=== PATIENT | male | born 1955 | race Caucasian/White ===

== ENCOUNTER 2022-12-19 05:27 | Observation (INO) ==
--- NOTE | 2022-11-28 09:04 | PAT Medication Instructions ---
Medication Instructions Date of Service November 28, 2022 Home Medications celecoxib 200 mg capsule (Celebrex) 200 mg PO DAILY PRN cholecalciferol (vitamin D3) 25 mcg (1,000 unit) tablet (Vitamin D3) 25 mcg PO QAM glipizide 5 mg tablet, extended release 24 hr 5 mg PO QAM hydrochlorothiazide 12.5 mg tablet 12.5 mg PO UD lisinopril 40 mg tablet 40 mg PO QAM metformin 750 mg tablet,extended release 24 hr 750 mg PO BID metoprolol succinate 25 mg tablet,extended release 24 hr 12.5 mg PO QAM acetaminophen 500 mg tablet 500 mg PO Q6H PRN apixaban 5 mg tablet (Eliquis) 5 mg PO BID hydrocodone 5 mg-acetaminophen 325 mg tablet 1 - 2 tab PO Q6H PRN methylprednisolone 4 mg tablets in a dose pack 4 mg PO QAM PRN Continue as directed methylprednisolone 4 mg tablets in a dose pack 4 mg PO QAM PRN ASK your surgeon for instructions celecoxib 200 mg capsule (Celebrex) 200 mg PO DAILY PRN ASK your prescriber and surgeon apixaban 5 mg tablet (Eliquis) 5 mg PO BID(in order for spinal or epidural anesthesia, Eliquis needs to be stopped 72 hours/3 days before surgery. Please check if okay with doctor that prescribes this to you) DO NOT take the morning of surgery cholecalciferol (vitamin D3) 25 mcg (1,000 unit) tablet (Vitamin D3) 25 mcg PO QAM glipizide 5 mg tablet, extended release 24 hr 5 mg PO QAM hydrochlorothiazide 12.5 mg tablet 12.5 mg PO UD lisinopril 40 mg tablet 40 mg PO QAM metformin 750 mg tablet,extended release 24 hr 750 mg PO BID Take morning of surgery With a small sip of water, OTHERWISE NOTHING TO EAT OR DRINK AFTER MIDNIGHT: metoprolol succinate 25 mg tablet,extended release 24 hr 12.5 mg PO QAM acetaminophen 500 mg tablet 500 mg PO Q6H PRN(if needed) hydrocodone 5 mg-acetaminophen 325 mg tablet 1 - 2 tab PO Q6H PRN(if needed) Take evening before surgery metformin 750 mg tablet,extended release 24 hr 750 mg PO BID acetaminophen 500 mg tablet 500 mg PO Q6H PRN(if needed) hydrocodone 5 mg-acetaminophen 325 mg tablet 1 - 2 tab PO Q6H PRN(if needed) Other Notes If you have any questions please call us at [phone] or [phone] or [phone] or [phone]
--- NOTE | 2022-12-01 08:04 | History & Physical Report ---
Date of Service December 01, 2022 date of surgery: 12/19/22 Procedure: Left Total Knee Arthroplasty Surgeon: Harman Song Assessment & Plan (1) Arthritis of knee, left: Plan: Risk and benefits of the procedure discussed in detail he would like to proceed with surgical invention. Plan will be left total knee arthroplasty. He has been given the okay to discontinue his Eliquis prior to his surgery and will resume this postoperatively. Would recommend overnight stay with discharge with home health physical therapy. Follow-up in the office 2 weeks postoperatively sooner if you have any problems The risks and benefits have been discussed including, but not limited to, risk of infection, nerve injury, stiffness, loss of motion, failure to improve, etc. Reasonable outcomes and options of treatment were discussed. An explanation of appropriate alternatives to the procedure that may be advantageous were discussed and their risks and benefits, as well as the risks and benefits of not proceeding with treatment. I offered to answer any additional inquiries concerning the treatment involved. All the patient's questions were answered. The patient is agreeable, understanding of the treatment plan and alternatives, and wishes to proceed with the treatment plan. History of Present Illness Chief Complaint: left knee pain Primary Care Provider: JOAO Harris Johan is a pleasant 67-year-old male who presented for preop evaluation prior to his left total knee replacement. He states that he is having pain in his knee for many years now which is gradually worsening, he has a history of left knee arthroscopy with partial meniscectomy but showed no improvement after surgery. He has tried oral anti-inflammatories and Tylenol without relief, he is currently unable to take anti-inflammatories secondary to the Eliquis. He has complaints of pain decreased range of motion and instability, currently rates his pain as 7 out of 10 Allergies Allergy/AdvReac Type Severity Reaction Status Date / Time [id number]-ERK-DlR Reductase AdvReac Intermediate leg pain Verified 11/28/22 07:30 Inhibitor Home Medications Medication Instructions Recorded Confirmed Type celecoxib 200 mg capsule (Celebrex) 200 mg PO DAILY PRN Pain 08/09/22 11/28/22 History cholecalciferol (vitamin D3) 25 25 mcg PO QAM 08/09/22 11/28/22 History mcg (1,000 unit) tablet (Vitamin D3) glipizide 5 mg tablet, extended 5 mg PO QAM 08/09/22 11/28/22 History release 24 hr hydrochlorothiazide 12.5 mg tablet 12.5 mg PO UD 08/09/22 11/28/22 History lisinopril 40 mg tablet 40 mg PO QAM 08/09/22 11/28/22 History metformin 750 mg tablet,extended 750 mg PO BID 08/09/22 11/28/22 History release 24 hr metoprolol succinate 25 mg 12.5 mg PO QAM 08/09/22 11/28/22 History tablet,extended release 24 hr acetaminophen 500 mg tablet 500 mg PO Q6H PRN Pain 11/28/22 11/28/22 History apixaban 5 mg tablet (Eliquis) 5 mg PO BID 11/28/22 11/28/22 History hydrocodone 5 mg-acetaminophen 325 1 - 2 tab PO Q6H PRN Pain 11/28/22 11/28/22 History mg tablet methylprednisolone 4 mg tablets in 4 mg PO QAM PRN gout flare up 11/28/22 11/28/22 History a dose pack Past Med/Surg History Medical History Arthritis Diabetes mellitus, type 2 DVT (deep venous thrombosis) Dx 04/05/22 (Right knee region, felt r/t Covid infection per pt), started on Eliquis, new US showed remaining blot clots, continued Eliquis History of COVID-19 01/2022 > symptoms resolved Hx of gout Hypertension Obesity Surgical History H/O foot surgery LEFT HEEL SURGERY (HARDWARE INTACT) H/O knee surgery LEFT X6 H/O metal removed from eye H/O thumb surgery LEFT RECONSTRUCTION History of anesthesia reaction Slow to wake, post-op nausea History of appendectomy History of bilateral carpal tunnel release History of colonoscopy History of tooth extraction Hx of arthroscopy of right knee Family History Other No family history of adverse response to anesthesia Social History Smoking Status: Former smoker Smoking End Date: many years ago; Second Hand Exposure: No; Do You Dip or Chew Tobacco: No; Tobacco Cessation Education Requested by Patient: No Hx Alcohol Use: No Hx Substance Use: No Preferred Language: Bulgarian Communication Ability: Effective Director Of Home Health Services Required: No Beliefs That Will Affect Care: None Current Living Situation: Spouse Other Information That Helps Us Care for You: No Feels Safe at Home: Yes Safety Concerns: Feels Safe At This Time Assistive Devices: Denture - Upper and Denture - Lower Assistive Devices Comment: does not wear dentures Review of Systems Review of Systems: All systems reviewed & are unremarkable except as noted in HPI & below Constitutional: no fever, no chills and no sweats Respiratory: no cough and no dyspnea Cardiovascular: no chest pain, no dyspnea and no orthopnea Gastrointestinal: no abdominal pain, no nausea and no vomiting Musculoskeletal: as per Subjective / HPI Physical Exam Physical Exam: HT 5ft 9in WT: 113.3kg Constitutional: WD/WN, vitals as above no acute distress Respiratory: normal respiratory effort, lungs clear to auscultation no respiratory distress, no labored breathing and does not use accessory muscles Cardiovascular: RRR, no murmur, no edema Gastrointestinal (Abdomen): normal bowel sounds, soft, nontender, no hepatosplenomegaly Musculoskeletal: Knee: + effusion (+1 effusion), + surgical incision (well healed portals), + limited ROM of knee (ROM 0/3/110), + knee ROM with crepitation, + joint line tenderness (medial joint line) and + Dhiraj's sign positive; no deformity, no skin erythema, no ecchymosis, no valgus laxity, no varus laxity, anterior drawer test negative, Russel's sign negative and pivot shift test negative Results & Data Results & Data ([facility]) Diagnostic Findings Left knee x-rays and MRI reviewed which show grade 3 4 degenerative changes to the medial compartment of his left knee with joint space narrowing osteophyte formation no acute findings noted
--- NOTE | 2022-12-01 13:17 | Anesthesiology Consultation ---
Date of Service December 01, 2022 Assessment & Plan (1) Encounter for pre-operative examination: Plan - elevated A1c 7.9% and WBC at 12 with left shift dating back to 08/22 per [place] records. Case discussed in detail with Dr. Vang who advised patient is acceptable to proceed with surgery without additional evaluation or testing from his standpoint. Surgeon's office made aware. - Pt made aware of positive COVID test, surgery will be more than 15 days from positive test date and pt is asymptomatic at this time. He can proceed with surgery, is to call office if develops symptoms. He verbalized full understanding and agreement, denied questions or concerns. - check BSG am DOS. - Outpatient joint assessment: Patient is currently scheduled for inpatient pathway. If re-evaluated pending system levels during current pandemic/surgeon requests outpatient pathway, patient is not acceptable candidate for outpatient joint program from anesthesia standpoint. Chart Review Chart Review: Acceptable Risk for Surgery and Patient seen in Pre Admission Testing Teaching & Discussion Pre-Anesthesia Teaching/Discussion Notes: Instructed NPO after midnight before surgery, except medications with 15 cc of water. Medication instructions provided according to the PAT guidelines. History Surgery Operation Date: 12/19/22 08:25 Proposed Procedures p Left Total Knee Arthroplasty - Harman Song DO Height/Weight Height: 5 ft 9 in Weight: 119 kg Allergies Allergy/AdvReac Type Severity Reaction Status Date / Time [id number]-TWB-[id number] Reductase AdvReac Intermediate leg pain Verified 11/28/22 07:30 Inhibitor Medications Home Medications Medication Instructions Recorded Confirmed Last Taken celecoxib 200 mg capsule (Celebrex) 200 mg PO DAILY PRN Pain 08/09/22 11/28/22 Unknown cholecalciferol (vitamin D3) 25 25 mcg PO QAM 08/09/22 11/28/22 Unknown mcg (1,000 unit) tablet (Vitamin D3) glipizide 5 mg tablet, extended 5 mg PO QAM 08/09/22 11/28/22 Unknown release 24 hr hydrochlorothiazide 12.5 mg tablet 12.5 mg PO UD 08/09/22 11/28/22 Unknown lisinopril 40 mg tablet 40 mg PO QAM 08/09/22 11/28/22 Unknown metformin 750 mg tablet,extended 750 mg PO BID 08/09/22 11/28/22 Unknown release 24 hr metoprolol succinate 25 mg 12.5 mg PO QAM 08/09/22 11/28/22 Unknown tablet,extended release 24 hr acetaminophen 500 mg tablet 500 mg PO Q6H PRN Pain 11/28/22 11/28/22 Unknown apixaban 5 mg tablet (Eliquis) 5 mg PO BID 11/28/22 11/28/22 Unknown hydrocodone 5 mg-acetaminophen 325 1 - 2 tab PO Q6H PRN Pain 11/28/22 11/28/22 Unknown mg tablet methylprednisolone 4 mg tablets in 4 mg PO QAM PRN gout flare up 11/28/22 11/28/22 Unknown a dose pack Past Medical History Medical History (Updated 12/01/22 @ 13:33 by Aviva Mclaughlin PA-C) Diabetes mellitus, type 2 NIDDM DVT (deep venous thrombosis) Dx 04/05/22 (Right knee region, felt r/t Covid infection per pt), started on Eliquis, new US showed remaining blot clots, continued Eliquis GERD (gastroesophageal reflux disease) rare, takes OTC medication prn History of COVID-19 01/2022 > symptoms resolved Hx of gout Hypertension controlled, stable per pt Obesity Patient denies h/o stroke, seizures, heart attack, heart failure, or blood transfusions. Exercise / Class Metabolic Activity II 4-5 Yardwork/Stairs/Walk up hill (denies chest discomfort or shortness of breath with 1 FOS) Past Family History Family History Other No family history of adverse response to anesthesia Past Surgical History Surgical History H/O foot surgery LEFT HEEL SURGERY (HARDWARE INTACT) H/O knee surgery LEFT X6 H/O metal removed from eye H/O thumb surgery LEFT RECONSTRUCTION History of anesthesia reaction Slow to wake, post-op nausea History of appendectomy History of bilateral carpal tunnel release History of colonoscopy History of tooth extraction Hx of arthroscopy of right knee Past Anesthesia History No Family Hx of Anesthesia Complications and Other (slow to wake up; denies re- intubation) History of PONV No Hx of Motion Sickness and History of PONV (denies needing scop patch) Social History Smoking Status: Former smoker tobacco type: cigarettes Do You Dip or Chew Tobacco: No Smoking End Date: many years ago Hx Alcohol Use: Yes alcohol intake frequency: holidays/special occasions only Hx Substance Use: No substance use type: does not use Review of Systems Pt reports onset of rhinorrhea and nonproductive cough, symptom onset "more than a week ago". Pt states symptoms have fully resolved at this time. Snoring, denies witnessed apneas. Patient denies chest pain, shortness of breath, dyspnea on exertion, fever, chills, wheezing, or palpitations. Physical Exam Vital Signs Vitals BP 144/84 P 102 (Pt reports anxiety in clinical settings) TEMP 99 SP02 96% on RA RESP 18 Physical Full cervical extension range of motion without pain TMD 3.5 finger breadths Mallampati Score 2 Dentition: edentulous Lungs: normal respiratory effort. Clear throughout to auscultation, no adventitious breath sounds Cardiac: regular rate and rhythm, no murmurs noted Carotid arteries: negative bruit bilat Testing Electrocardiogram Date: 08/14/22 NSR, rate 82 bpm Chest X-Ray Date: 08/14/22 The lungs are clear. Cardiac silhouette is normal in size. No pleural effusions. No pneumothorax. IMPRESSION: No acute process. COVID-19 Risk Screen Screening Information COVID-19 Screen Date: 12/01/22 Exposure 21 Days Family/Household +COVID Last 21 Days: No Exposure 10 Days Any COVID Exposure Last 10 Days: No Symptoms Last 10 Days Experienced COVID Sx Last 10 Days: Yes Covid Sx 10 Day Pathway: If patient has symptoms, they should follow up with their PCP/surgeon to be COVID -19 tested and for further instructions related to their illness. Order COVID Testing COVID-19 Test Result pathway: * If the COVID Test is Negative, other risk factors are acceptable, and the patient is feeling well; proceed with procedure. * If the COVID-19 test is Positive: * Elective procedures will be cancelled/rescheduled per Policy 1096. * Urgent or Emergent procedures will need documentation that the procedure is medically necessary and precautions implemented per Policy 1096. Policies and Procedures Refer to Policy and Procedure 1096 for Initiation & Discontinuation of Transmission-Based Precautions for Confirmed and Suspected SARS-CoV-2 Infection which can be found on the Intranet in the Clinical Resources Manual by clicking on the link below: [email or web address] 20and%[email or web address]%20of%[email or web address] .pdf#search=discontinuation%20of%20Transmission%2DBased + COVID 0-90 Days COVID + in Last 0-90 Days: Yes + COVID Test 0-10 Day: Yes +Covid 0-90 Day Pathway: Validate type of COVID-19 test (must secure test results for patient chart) * The patients test result MUST be a NAAT (i.e., molecular test not an antigen test). * NO other COVID-19 testing needed pre-op or day of surgery inside the 90 day window if prior positive test is acceptable per hospital Policy. Note: Home tests or antigen tests are NOT accepted per hospital policy. Provider to place an order for a ALEXEY (i.e., molecular test not an antigen test). Then proceed to the appropriate pathway based on the testing results. Elective Case +COVID-19 in the last 0-10 Days * Cancel/reschedule using Policy 1096. * Reschedule procedure 11 days if asymptomatic. * Reschedule procedure 15 days if mild symptoms. * Reschedule procedure 21 days if moderate to severe symptoms. Elective Case +COVID-19 in the last 11-90 Days * Proceed with procedure according to Policy 1096 * Reschedule procedure 11 days if asymptomatic. * Reschedule procedure 15 days if mild symptoms. * Reschedule procedure 21 days if moderate to severe symptoms. Urgent or Emergent Case * Provider will provide medical necessity statement in the H&P and patient will be scheduled on the (+) COVID/PUI pathway per hospital policy. Policies and Procedures Refer to Policy and Procedure 1096 for Initiation & Discontinuation of Transmission-Based Precautions for Confirmed and Suspected SARS-CoV-2 Infection which can be found on the Intranet in the Clinical Resources Manual by clicking on the link below: [email or web address] 20and%20Discontinuation%20of%20Transmissi on.[email or web address]#search=discontinuation%20of%20Transmission%2DBased
[~2022-12-19 05:27] MED LIST: ACETAMINOPHEN 500 MG TAB PO SCH; CeleBREX 200 MG CAP PO SCH; FAMOTIDINE 20 MG TAB PO SCH; GABAPENTIN 300 MG CAP PO SCH; LR 500ML BOLUS, THEN 15ML/HR IV SCH; METOCLOPRAMIDE HCL 10 MG TABLET PO SCH; ROPIVACAINE 0.5% HCL/PF 150 MG, BUPIVACAINE 0.75% MPF 20 ML, EPINEPHrine 30MG/30ML (OR ... INFIL SCH; TRANEXAMIC ACID 1,000 MG **IV Intra-op IV SCH; TRANEXAMIC ACID 1,000 MG **IV Pre-op IV SCH; ceFAZolin 2000MG 2,000 MG/15 ML SYR IV SCH; dexAMETHasone 4 MG TAB PO SCH
[2022-12-19] MEDS ORDERED: GABAPENTIN 300 MG CAP PO SCH (06:00)
[2022-12-19] MEDS ORDERED: ceFAZolin 2000MG 2,000 MG/15 ML SYR IV SCH (06:00)
[2022-12-19] MEDS ORDERED: FAMOTIDINE 20 MG TAB PO SCH (06:00)
[2022-12-19] MEDS ORDERED: ACETAMINOPHEN 500 MG TAB PO SCH (06:00)
[2022-12-19] MEDS ORDERED: TRANEXAMIC ACID 1,000 MG **IV Pre-op IV SCH (06:00)
[2022-12-19] MEDS ORDERED: TRANEXAMIC ACID 1,000 MG **IV Intra-op IV SCH (06:00)
[2022-12-19] MEDS ORDERED: CeleBREX 200 MG CAP PO SCH (06:00)
[2022-12-19] MEDS ORDERED: ROPIVACAINE 0.5% HCL/PF 150 MG, BUPIVACAINE 0.75% MPF 20 ML, EPINEPHrine 30MG/30ML (OR ... INFIL SCH (06:00)
[2022-12-19] MEDS ORDERED: dexAMETHasone 4 MG TAB PO SCH (06:00)
[2022-12-19] MEDS ORDERED: LR 500ML BOLUS, THEN 15ML/HR IV SCH (06:00)
[2022-12-19] MEDS ORDERED: METOCLOPRAMIDE HCL 10 MG TABLET PO SCH (06:00)
[2022-12-19] MEDS ORDERED: BUPIVACAINE 0.5 % 5 MG/1 ML PF 10ML VIAL ONE (06:32)
[2022-12-19] MEDS ORDERED: DEXAMETHASONE SOD INJ 4 MG/ML VIAL ONE (06:32)
[2022-12-19] MEDS ORDERED: EPINEPHrine INJ 1 MG/ML AMP ONE (06:32)
[2022-12-19] MEDS ORDERED: BUPIVACAINE 0.25% PF 30 ML VIAL ONE (06:32)
[2022-12-19] MEDS ORDERED: ORTHO JOINT ANESTHETIC ONE (07:06)
--- NOTE | 2022-12-19 07:27 | History & Physical Bridge Note ---
Date of Service December 19, 2022 History & Physical Bridge Note I have examined the patient, reviewed the History & Physical and in the interval since the performance of the History & Physical I have noted the following changes of clinical significance: no changes noted
[2022-12-19] MEDS ORDERED: MIDAZOLAM HCL 1 MG/ML 2ML VIAL ONE (07:44)
[2022-12-19] MEDS ORDERED: PROPOFOL IV EMULSION 10 MG/ML 20 ML VIAL IV ONE (07:44)
[2022-12-19] MEDS ORDERED: fentaNYL citrate PF 100 MCG/2 ML VIAL ONE (07:44)
[2022-12-19] MEDS ORDERED: ONDANSETRON INJ 2 MG/ML 2 ML VIAL ONE ×2 (07:47→08:58)
[2022-12-19] MEDS ORDERED: ONDANSETRON INJ 2 MG/ML 2 ML VIAL IV PRN ×2 (09:06→12:13)
[2022-12-19] MEDS ORDERED: fentaNYL citrate PF 100 MCG/2 ML VIAL IV PRN (09:06)
[2022-12-19] MEDS ORDERED: ATROPINE SULFATE 0.1 MG/ML 10ML SYR IV PRN (09:06)
[2022-12-19] MEDS ORDERED: ePHEDrine sulfate 50 MG/ML AMP IV PRN (09:06)
[2022-12-19] MEDS ORDERED: PROMETHAZINE HCL 6.25 MG in SODIUM CHLORIDE 0.9% 50 ML IV PRN (09:06)
[2022-12-19] MEDS ORDERED: PHENYLEPHRINE 100MCG/ML 5ML SYR ONE (09:14)
[2022-12-19] MEDS ORDERED: PHENYLEPHRINE HCL 10 MG/ML VIAL ONE (09:14)
--- NOTE | 2022-12-19 10:00 | Operative Report ---
Post Operative Report Pre & Post Diagnosis Operation Date: 12/19/22 08:25 Pre-Op Diagnosis: Left Knee Osterarthritis Post-Op Diagnosis: Left Knee Osterarthritis I identified the patient and participated in the time-out.: Yes Procedure Operation Date: 12/19/22 08:25 Actual Procedures p Left Total Knee Arthroplasty(Left) utilizing [employer] journey 2 patient matched total knee arthroplasty size femur 6 tibia 5 Poly 12 patella 32 jaymie- Harman Song DO Surgeon Harman Song DO Sample Sewer Leo HUIZAR Estimated Blood Loss 5 Findings Consistent with Post-Op Diagnosis Patient presents with severe end-stage tricompartmental degenerative joint disease 5 degree flexion contracture varus alignment subchondral sclerosis marginal osteophytes eburnated [id number] with moderate to large effusion Specimens Bone and cartilage Drains Medium bore Hemovac Anesthesia Type MAC Spinal Regional Complications none Disposition Accompanied Patient To Recovery: No Disposition: Recovery Room Indications Patient presents with severe end-stage tricompartmental degenerative joint disease failed attempted conservative management clinic physical therapy anti- inflammatories relative rest activity modification corticosteroid injection viscosupplementation above intraoperative findings were noted Description of Procedure After proper prepping and draping of the left lower extremity anterior midline incision was made over the region of the extensor extensor mechanism after meticulous hemostasis was obtained and maintained in subcutaneous tissues a medial parapatellar incision was made The patella was subluxed lateralward the medial lateral gutter were cleaned from any hypertrophic synovitis and scar tissue of the distal femoral block was placed and the distal femoral osteotomy cut was made subsequently the chamfers anterior and posterior osteotomy cuts were made utilizing the 4-in-1 block the tibia was subsequently subluxed anteriorward medial and ateral meniscal remnants were excised in their entirety remnants of the anterior and posterior cruciate ligaments were excised in their entirety excellent exposure of the proximal tibia was obtained the tibial osteotomy guide was placed on the proximal tibial osteotomy cut was made once again the knee was irrigated with copious amounts of sterile saline solution the patella was subsequently everted lateralward thickened scar tissue around the patella was removed the patella was subsequently cut utilizing a freehand techn ique and was drilled prepared for final preparation and placement of patella socially flexion-extension gaps were checked and the equal and symmetric trials were placed to the appropriate femoral and tibial trials with poly-spacer being placed for equal flexion and extension gaps and full range of motion including extension to 0 and flexion to 140 the trial components after having been taken to recovery range of motion was subsequently removed meticulous hemostasis was obtained and maintained subsequently a knee block injection of joint cocktail including ropivacaine 0.5% 150 mg. Bupivacaine 0.5% epinephrine 1-200,030 mL's toradol 30 mg dexamethasone 4 mg ketamine 10 mg clonidine 100 micrograms normal saline solution 30 mg was infiltrated into the soft tissues of the posterior knee medial lateral gutters and periosteal synovium special attention was paid to protect neurovascular structures at all times subsequently trial components having been removed the knee was irrigated with sterile saline solution. debris was removed the proximal tibia was subsequently prepared and was made ready for the placement of the tibial component tibial component was also cemented and tamped into position the femoral component was subsequently placed and cemented in the position the patellar component was subsequently cemented in position because hemostasis once again obtained and maintained wound having been thoroughly irrigated with debridement and debridement lavage was performed as well as a medial parapatellar incision closed with #1 Vicryl in interrupted fashion subcutaneous was closed with #2 Vicryl skin was closed with skin clips. PA-C was necessary for prepping and drapping as well as wound closure of deep fascia Sub cutaneous tissue and skin and was necessary for the case. A sterile compressive dressing was placed patient was taken to recovery in stable condition of report dictated by Duncan I attest to the content of the Intraoperative Record and any orders documented therein. Any exceptions are noted below.Due to the complex nature of the procedure, the entire surgery was performed with the operational assistance of Leo HUIZAR. The physician assistant primary care, under direct supervision, was involved in the actual performance of all aspects of the surgical procedure including hemostasis, tissue retraction and incision, instrument management, patient positioning, and wound closure. I attest to the content of the Intraoperative Record and any orders documented therein. Any exceptions are noted below.
--- NOTE | 2022-12-19 11:26 | XRay Report ---
TWO VIEWS LEFT KNEE CLINICAL HISTORY: Postoperative examination. FINDINGS: AP and crosstable lateral portable views of the left knee are obtained. A left knee arthrop lasty is in near anatomic alignment. There has been undersurface remodeling of the patella. No acute fracture is seen. There are expected postoperative changes around the knee including skin clips, a gibbons rgical drain, soft tissue edema, and subcutaneous gas. IMPRESSION: Expected postoperative changes status post left knee arthroplasty. No acute fracture is s een. ACT 112: Negative or not required by law. Electronically signed by: Dwight Villafuerte M.D. 12/19/2022 11:25 AM
--- NOTE | 2022-12-19 11:45 | Anesthesiology Progress Note ---
Date of Service December 19, 2022 Anesthesia Post Procedure Vital Signs Vital Signs: Temp Pulse Pulse Resp BP Pulse Ox O2 Del Method 12/19/22 11:35 36.4 C L 99 H 18 116/85 96 Room Air 12/19/22 11:25 98 H 14 115/84 98 Room Air 12/19/22 11:15 94 H 14 121/79 97 Room Air 12/19/22 11:05 96 H 16 113/78 99 Oxymask 12/19/22 10:56 36.5 C 105 H 16 114/69 100 Oxymask 12/19/22 06:02 36.7 C 92 H 20 122/94 98 Room Air O2 Flow Rate 12/19/22 11:35 12/19/22 11:25 12/19/22 11:15 12/19/22 11:05 6 12/19/22 10:56 11 12/19/22 06:02 Pain Intensity Left Knee: Pain Intensity: 3 Transfer of Care Handoff Completed per policy Notes Mental Status: alert / awake / arousable Patient Amnestic to Procedure: Yes Nausea / Vomiting: adequately controlled Pain: adequately controlled Airway Patency, RR, SpO2: stable & adequate BP & HR: stable & adequate Hydration State: stable & adequate Neuraxial Anesthesia: was administered and sensory block is resolving Anesthetic Complications: no major complications apparent and Pt Satisfied with anesthetic care
[2022-12-19] MEDS ORDERED: HYDROmorphone INJ 0.5 MG/0.5 ML SYR IV PRN (12:13)
[2022-12-19] MEDS ORDERED: MAGNESIUM HYDROXIDE SUSP 30 ML UDC PO PRN (12:13)
[2022-12-19] MEDS ORDERED: diphenhydrAMINE 50 MG/ML VIAL IV PRN (12:13)
[2022-12-19] MEDS ORDERED: PHARMACY GLYCEMIC MGMT CONSULT PRN (12:13)
[2022-12-19] MEDS ORDERED: NALOXONE HCL 0.4 MG/1 ML VIAL/CARP IV PRN (12:13)
[2022-12-19] MEDS ORDERED: bisacodyL 10 MG SUPP PR PRN (12:13)
[2022-12-19] MEDS ORDERED: LANTUS PER UNIT CHARGE SQ ONE (12:45)
[2022-12-19] MEDS: INSULIN ASPART PER UNIT CHARGE SC SCH ×3 (13:27→21:32)
[2022-12-19] MEDS: SODIUM CHLORIDE 0.9% 1000ML 1,000 ML IV SCH ×2 (13:32→22:53)
[2022-12-19] MEDS: ACETAMINOPHEN 500 MG TAB PO SCH ×2 (13:32→21:26)
--- NOTE | 2022-12-19 14:37 | Pharmacy Report ---
Pharmacy Glycemic Short Note 2 - Date of Service December 19, 2022 - Glycemic Short BSG Results (Last 24 hours): 12/19/22 12/19/22 12/19/22 05:53 08:49 10:58 POC Glucose 127 H 161 H 176 H 12/19/22 12:53 POC Glucose 200 H OUTPATIENT ANTIDIABETIC REGIMEN: * glipizide ER 5 mg PO qAM * metformin ER 750 mg PO BID * HbA1C = 7.9%(12/01/22) ASSESSMENT: * Mr Tate is a 67 y/o M with a PMH of T2DM on two oral agents who presents for L TKA. Patient's preop BSG was 127 mg/dL. Postop was 161-176-200 mg/dL. * Patient received dexamethasone 8 mg PO preop + Dexamethasone 4 mg IV during surgery. * Will start with Lantus 50 units SQ x 1 (35 units will cover for steroids - 0.4 units/kg + 15 units for basal needs). Since post-op BSG > 200 mg/dL, order overnight checks. * Novolog weight-based stress of 3 since steroids given. PLAN FOR INPATIENT GLYCEMIC CONTROL: * Hold outpatient oral diabetes medications * Basal insulin * Lantus 50 units SQ x 1 and re-evaluate for future dosings tomorrow. * Bolus insulin * NovoLog per scale ACHS or Q6hrs while NPO * Goal Range: Low 110 mg/dL - High 140 mg/dL * Correction Factor: 15 mg/dL/unit * Nutritional / Prandial insulin per carb ratio of 1 unit per 5 grams CHO consumed
[2022-12-19] MEDS: oxyCODONE HCL IR 5 MG TAB (IMMEDIATE RELEASE) PO PRN (17:34)
[2022-12-19] MEDS: ceFAZolin 2000MG 2,000 MG/15 ML SYR IV SCH (17:34)
[2022-12-19] MEDS ORDERED: NON-FORMULARY MEDICATION (Metformin 750 mg Tablet Extended Release 24 Hr) PO SCH (21:00)
[2022-12-19] MEDS ORDERED: SENNA 8.6 MG TAB PO SCH (21:00)
[2022-12-19] MEDS: DOCUSATE SODIUM 100 MG CAP PO SCH (21:26)
[2022-12-20] MEDS: ceFAZolin 2000MG 2,000 MG/15 ML SYR IV SCH (00:02)
[2022-12-20] MEDS: oxyCODONE HCL IR 5 MG TAB (IMMEDIATE RELEASE) PO PRN ×3 (00:06→13:42)
[2022-12-20] MEDS: INSULIN ASPART PER UNIT CHARGE SC SCH ×3 (00:06→08:35)
[2022-12-20] MEDS: ACETAMINOPHEN 500 MG TAB PO SCH (05:25)
[2022-12-20] MEDS: DOCUSATE SODIUM 100 MG CAP PO SCH (07:48)
[2022-12-20 08:01] LABS: BUN Creatinine Ratio 19.5 (10-20); Calcium 8.5 mg/dl (8.5-10.1); Creatinine Clr Calc Pharmacy 57.4 ml/min; Est GFR (Non-African American) 44.9 ml/min; Potassium 4.7 mmol/L (3.5-5.1)
[2022-12-20 08:02] LABS: Hematocrit (blood only) 38.2 % (42.0-52.0); Hemoglobin 12.8 g/dl (14.0-18.0); Mean Corpuscular Hemoglobin 28.6 pg (25.0-34.0); Mean Corpuscular Hgb Conc 33.5 g/dL (32.0-36.0); Mean Corpuscular Volume 85.3 fL (80.0-100.0); Mean Platelet Volume 9.8 fL (9.4-12.4); Platelet Count 206 K/uL (130-400); RDW Coefficient of Variation 13.2 % (11.5-14.5); RDW Standard Deviation 40.8 fL (36.4-46.3); Red Blood Count 4.48 M/uL (4.70-6.10); White Blood Count 27.96 K/ul (4.8-10.8)
[2022-12-20] MEDS ORDERED: APIXABAN 5 MG TABLET PO SCH (09:00)
[2022-12-20] MEDS ORDERED: METOPROLOL SUCC 25MG EXT REL TAB PO SCH (09:00)
[2022-12-20] MEDS ORDERED: CHOLECALCIFEROL 1,000 UNITS 25 MCG TAB PO SCH (09:00)
[2022-12-20] MEDS ORDERED: NON-FORMULARY MEDICATION (Glipizide 5 mg Tablet Extended Release 24hr) PO SCH (09:00)
[2022-12-20] MEDS ORDERED: LANTUS PER UNIT CHARGE SQ SCH (09:00)
[2022-12-20] MEDS ORDERED: MULTIVITAMIN TAB PO SCH (09:00)
[2022-12-20] MEDS ORDERED: lisinopril 40 MG TAB PO SCH (09:00)
[2022-12-20] MEDS ORDERED: INSULIN ASPART PER UNIT CHARGE SC SCH ×2 (11:30)
--- NOTE | 2022-12-20 13:05 | Orthopedic Progress Note ---
Date of Service December 20, 2022 Assessment & Plan (1) History of total left knee replacement: Plan: Pt is POD #1 s/p Left TKA. -Pain regime as written -DVT ppx with Eliquis BID x30 days, TEDs, and SCDs - PT/OT. Pt did well today with PT and is stable for home -Pt is stable from an orthopedic standpoint to be d/c today after dressing change and drain is removed. Admission and Anticipated Discharge Date Admission Date: December 19, 2022 Subjective Pt is POD #1 s/p Left TKA -Pt doing well this afternoon, sitting up in chair and states he feels ready to go home -States he has some mild pain at his surgical site however is controlled with current medications -Has been ambulating with the walker without issues and did well with PT this morning -100cc of drain output recorded last shift -Denies CP, SOB, abdominal pain, N/V Review of Systems Review of Systems: All systems reviewed & are unremarkable except as noted in Subjective Physical Exam Physical Exam: LLE with dressing and drain in place and is c/d/i. Calf is nontender and negative Nadege sign. Able to wiggle toes without issue and full ROM of ankle. Capillary refill is less than 2 seconds and distal perfusion and sensation are grossly intact. Results & Data Vital Signs (Past 12 Hours) Vital Signs Temp Pulse Resp BP Pulse Ox O2 Del Method 12/20/22 11:33 36.6 C 92 H 16 107/68 97 Room Air 12/20/22 07:54 36.5 C 91 H 16 123/75 98 Room Air 12/20/22 07:46 36.5 C 87 16 123/75 97 Room Air 12/20/22 04:00 36.7 C 89 18 99/62 L 97 Room Air Laboratory Results Laboratory Results WBC 27.96 K/ul (4.8-10.8) H 12/20/22 07:30 RBC 4.48 M/uL (4.70-6.10) L 12/20/22 07:30 Hgb 12.8 g/dl (14.0-18.0) L 12/20/22 07:30 Hct 38.2 % (42.0-52.0) L 12/20/22 07:30 MCV 85.3 fL (80.0-100.0) 12/20/22 07:30 MCH 28.6 pg (25.0-34.0) 12/20/22 07:30 MCHC 33.5 g/dL (32.0-36.0) 12/20/22 07:30 RDW Std Deviation 40.8 fL (36.4-46.3) 12/20/22 07:30 RDW Coeff of Oscar 13.2 % (11.5-14.5) 12/20/22 07:30 Plt Count 206 K/uL (130-400) 12/20/22 07:30 MPV 9.8 fL (9.4-12.4) 12/20/22 07:30 Sodium 135 mmol/L (136-145) L 12/20/22 07:30 Potassium 4.7 mmol/L (3.5-5.1) 12/20/22 07:30 Chloride 107 mmol/L (98-107) 12/20/22 07:30 Carbon Dioxide 22 mmol/L (21-32) 12/20/22 07:30 Anion Gap 6 (3-11) 12/20/22 07:30 BUN 31 mg/dl (6-23) H 12/20/22 07:30 Creatinine 1.59 mg/dl (0.6-1.4) H 12/20/22 07:30 Est Cr Clr Drug Dosing 57.4 ml/min 12/20/22 07:30 Est GFR ( Amer) 52.0 ml/min 12/20/22 07:30 Est GFR (Non-Af Amer) 44.9 ml/min 12/20/22 07:30 BUN/Creatinine Ratio 19.5 (10-20) 12/20/22 07:30 Glucose 153 mg/dl (70-99(Fasting)) H 12/20/22 07:30 POC Glucose 167 mg/dl (70-99) H 12/20/22 11:55 Calcium 8.5 mg/dl (8.5-10.1) 12/20/22 07:30 Impressions Knee X-Ray 12/19/22 11:04 TWO VIEWS LEFT KNEE CLINICAL HISTORY: Postoperative examination. FINDINGS: AP and crosstable lateral portable views of the left knee are obtained. A left knee arthroplasty is in near anatomic alignment. There has been undersurface remodeling of the patella. No acute fracture is seen. There are expected postoperative changes around the knee including skin clips, a surgical drain, soft tissue edema, and subcutaneous gas. IMPRESSION: Expected postoperative changes status post left knee arthroplasty. No acute fracture is seen. ACT 112: Negative or not required by law. Electronically signed by: Dwight Villafuerte M.D. 12/19/2022 11:25 AM
[2022-12-21] MEDS ORDERED: hydroCHLOROthiazide 25 MG TAB PO SCH (09:00)
[2022-12-21] MEDS ORDERED: LANTUS PER UNIT CHARGE SQ SCH (09:00)
--- NOTE | 2022-12-22 10:55 | Discharge Summary ---
Date of Service December 22, 2022 Admission HPI Per Admitting Provider Johan is a pleasant 67-year-old male who presented for preop evaluation prior to his left total knee replacement. He states that he is having pain in his knee for many years now which is gradually worsening, he has a history of left knee arthroscopy with partial meniscectomy but showed no improvement after surgery. He has tried oral anti-inflammatories and Tylenol without relief, he is currently unable to take anti-inflammatories secondary to the Eliquis. He has complaints of pain decreased range of motion and instability, currently rates his pain as 7 out of 10 Admission Exam Per Admitting Provider Physical Exam: HT 5ft 9in WT: 113.3kg Constitutional: WD/WN, vitals as above no acute distress Respiratory: normal respiratory effort, lungs clear to auscultation no respiratory distress, no labored breathing and does not use accessory muscles Cardiovascular: RRR, no murmur, no edema Gastrointestinal (Abdomen): normal bowel sounds, soft, nontender, no hepatosplenomegaly Musculoskeletal: Knee: + effusion (+1 effusion), + surgical incision (well healed portals), + limited ROM of knee (ROM 0/3/110), + knee ROM with crepitation, + joint line tenderness (medial joint line) and + Dhiraj's sign positive; no deformity, no skin erythema, no ecchymosis, no valgus laxity, no varus laxity, anterior drawer test negative, Russel's sign negative and pivot shift test negative Principal Diagnosis Left Knee Osteoarthritis Discharge Data Allergies Allergy/AdvReac Type Severity Reaction Status Date / Time [id number] Reductase AdvReac Intermediate leg pain Verified 12/19/22 05:57 Inhibitor Procedures Performed Operation Date: 12/19/22 08:25 Actual Procedures p Left Total Knee Arthroplasty(Left) - Harman Song DO Ordered Studies 12/19/22 05:00 US - OR guided needle placemen Routine Hospital Course (1) History of total left knee replacement: [facility], [id number] Orthopedic Progress Note Signed Patient:JOHAN NORTON Admit Date:12/19/22 MR#:[id number] Att Phy:Harman Song,D.OMalka Acct ID:[id number] Zena Phy:Rolando Sena Date:1955 Fam Phy: Age:67 Location:3E Sex:M Room/Bed:[id number] cc: ~ *NOTICE TO RECEIVING [employer]/AGENCY This information is strictly Confidential and protected under [place] law. [place] law prohibits you from making any further disclosure of this information unless further disclosure is expressly permitted by the written consent of the person to whom it pertains or is authorized by law. A general authorization for the release of medical or other information is not sufficient for this purpose. Hospital accepts no responsibility if the information is made available to any other person, INCLUDING THE PATIENT. Date of Service December 20, 2022 Assessment & Plan (1) History of total left knee replacement: Plan: Pt is POD #1 s/p Left TKA. -Pain regime as written -DVT ppx with Eliquis BID x30 days, TEDs, and SCDs - PT/OT. Pt did well today with PT and is stable for home -Pt is stable from an orthopedic standpoint to be d/c today after dressing change and drain is removed. Admission and Anticipated Discharge Date Admission Date: December 19, 2022 Subjective Pt is POD #1 s/p Left TKA -Pt doing well this afternoon, sitting up in chair and states he feels ready to go home -States he has some mild pain at his surgical site however is controlled with current medications -Has been ambulating with the walker without issues and did well with PT this morning -100cc of drain output recorded last shift -Denies CP, SOB, abdominal pain, N/V Review of Systems Review of Systems: All systems reviewed & are unremarkable except as noted in Subjective Physical Exam Physical Exam: LLE with dressing and drain in place and is c/d/i. Calf is nontender and negative Nadege sign. Able to wiggle toes without issue and full ROM of ankle. Capillary refill is less than 2 seconds and distal perfusion and sensation are grossly intact. Results & Data Vital Signs (Past 12 Hours) Vital Signs Temp Pulse Resp BP Pulse Ox O2 Del Method 12/20/22 11:33 36.6 C 92 H 16 107/68 97 Room Air 12/20/22 07:54 36.5 C 91 H 16 123/75 98 Room Air 12/20/22 07:46 36.5 C 87 16 123/75 97 Room Air 12/20/22 04:00 36.7 C 89 18 99/62 L 97 Room Air Laboratory Results Laboratory Results WBCE 27.96 K/ul (4.8-10.8) H 12/20/22 07:30 RBC 4.48 M/uL (4.70-6.10) L 12/20/22 07:30 Hgb 12.8 g/dl (14.0-18.0) L 12/20/22 07:30 Hct 38.2 % (42.0-52.0) LC 12/20/22 07:30 MCV 85.3 fL (80.0-100.0) 12/20/22 07:30 MCH 28.6 pg (25.0-34.0) 12/20/22 07:30 MCHC 33.5 g/dL (32.0-36.0) 12/20/22 07:30 RDW Std Deviation 40.8 fL (36.4-46.3) 12/20/22 07:30 RDW Coeff of Oscar 13.2 % (11.5-14.5) 12/20/22 07:30 Plt Count 206 K/uL (130-400) 12/20/22 07:30 MPV 9.8 fL (9.4-12.4) 12/20/22 07:30 Sodium 135 mmol/L (136-145) L 12/20/22 07:30 Potassium 4.7 mmol/L (3.5-5.1) 12/20/22 07:30 Chloride 107 mmol/L (98-107) 12/20/22 07:30 Carbon Dioxide 22 mmol/L (21-32) 12/20/22 07:30 Anion Gap 6 (3-11) 12/20/22 07:30 BUN 31 mg/dl (6-23) H 12/20/22 07:30 Creatinine 1.59 mg/dl (0.6-1.4) H 12/20/22 07:30 Est Cr Clr Drug Dosing 57.4 ml/min 12/20/22 07:30 Est GFR ( Amer) 52.0 ml/min 12/20/22 07:30 Est GFR (Non-Af Amer) 44.9 ml/min 12/20/22 07:30 BUN/Creatinine Ratio 19.5 (10-20) 12/20/22 07:30 Glucose 153 mg/dl (70-99(Fasting)) H 12/20/22 07:30 POC Glucose 167 mg/dl (70-99) H 12/20/22 11:55 Calcium 8.5 mg/dl (8.5-10.1) 12/20/22 07:30 Impressions Knee X-Ray 12/19/22 11:04 TWO VIEWS LEFT KNEE CLINICAL HISTORY: Postoperative examination. FINDINGS: AP and crosstable lateral portable views of the left knee are obtained. A left knee arthroplasty is in near anatomic alignment. There has been undersurface remodeling of the patella. No acute fracture is seen. There are expected postoperative changes around the knee including skin clips, a surgical drain, soft tissue edema, and subcutaneous gas. IMPRESSION: Expected postoperative changes status post left knee arthroplasty. No acute fracture is seen. ACT 112: Negative or not required by law. Electronically signed by: Dwight Villafuerte M.D. 12/19/2022 11:25 AM Signed By: <Electronically signed by Harman Song DO> 12/21/22 1009 <Electronically signed by Pamela Dorsey PA-C> 12/20/22 1304 Total Time Total Time Spent Total Time Spent (In Minutes): 5 Discharge Plan Discharge Items Patient Disposition: Home - Home Health Services Reason For Visit: Left Knee Osterarthritis Discharge Diagnosis: Left knee osteoarthritis Activity: Per Instructions section Weightbearing: Left weightbearing Weightbearing Comment: As tolerated with walker Non-emergency contact: Surgeon Call non-emergency contact if: you have any medication questions, your pain is not controlled, your temperature is above 101.5, your wound has increased redness, your wound has increased drainage and your wound pain has increased Follow-up/Referrals: Harman Song DO [Surgeon] - (Follow-up with Dr. Song or his PA in 2 weeks from the day of surgery for your first postoperative visit.) Rolando Sena CRNP [Primary Care Provider] - Diet: Carb Consistent or DM2 Addtl Attending Provider Instructions: ACTIVITY RECOMMENDATIONS: SELF CARE INSTRUCTIONS AFTER TOTAL KNEE REPLACEMENT A. You may need to continue a physical therapy program after discharge from the hospital. There are several options available to you. Your doctor will assist you in selecting the best one for you. 1. An out-patient facility 2 to 3 times a week for therapy or home therapy. 2. Continue working on all exercises taught to you in the hospital. Your goals should be to increase bending of your knee to 90 degrees and beyond and to fully straighten your knee. B. You may progress at your own pace from walking with a walker or crutches to a cane; then to no assistive devices. C. Make walking a part of your daily routine. Be up as much as comfortable with rest periods throughout the day. Rest with leg elevation is very important. Use the ice wrap frequently for the first 3-4 weeks. D. There are no restrictions on activities. You may ride in a car, shop, participate in all source intelligence technician and all social activities. E. Wear the long elastic stockings (DIPTI hose) 20 hours a day for 2 weeks after surgery. They can be removed several times a day for laundering and for a bath. F. You may shower, no tub baths until cleared by your doctor. SPECIAL CARE INSTRUCTIONS: VERY IMPORTANT TO READ AND REVIEW A. There are a few signs you need to watch for after you are home. Call [facility] if you notice any of the followin. Increased severe knee pain. Some pain is expected especially when you exercise. 2. Increased swelling in your leg or knee; pain or swelling of the calf muscle in either lower leg. 3. Any fluid drainage from the incision. 4. Shortness of breath or chest pain. B. Please call [facility] at if you have any concerns or questions about your operation or recovery. The doctor or his nurse will return your call promptly. C. You must take antibiotics before dental work, bladder, bowel or other surgery. Your doctor will provide you with a permanent care to carry describing this precaution. IMPORTANT: * REMEMBER TO TAKE ASPIRIN, 81 MG, TWICE DAILY FOR 4 WEEKS UNLESS OTHERWISE DIRECTED. THIS IS YOUR BLOOD THINNER. * HIGH RISK PATIENTS MAY BE PRESCRIBED A STRONGER BLOOD THINNER. THIS WILL BE PROVIDED AT DISCHARGE. * CALL IF INCREASED PAIN, REDNESS, DRAINAGE OR FEVER GREATER THAT 101. * WEAR DIPTI HOSE 20 HOURS PER DAY FOR 2 WEEKS. * Prevena- This is a large suction dressing covering your incision. This will help pull any excess drainage from the wound and allow your incision to heal properly. You may shower with this if you can keep the unit outside of the shower. If any bleeding or leakage is noted please call your doctor's office. This will remain on your incision for 7 days and then should be removed. This can be done yourself or by the home nursing staff if applicable. The entire unit is disposable once removed. Once removed, keep incision clean and dry. If redness or drainage is noted, please call your surgeon. . FOLLOW UP VISIT: If appointment is not already scheduled: Please call [facility] to make a follow-up appointment for 2 weeks after your surgery at . Pending Studies at Discharge: No Stand-Alone Forms: [employer], Pain - Opioid Pain Management, oking Cessation Medications and DC Order Prescriptions: New acetaminophen 500 mg capsule 1,000 mg PO Q8H 14 Days Qty: 84 0RF cefadroxil 500 mg capsule 500 mg PO BID 14 Days Qty: 28 1RF celecoxib [Celebrex] 200 mg capsule 200 mg PO BID PRN (Reason: pain) Qty: 60 0RF oxycodone 5 mg tablet 5 mg PO Q4H MDD 6 PRN (Reason: pain) Qty: 30 0RF Continued metoprolol succinate 25 mg Tablet Extended Release 24 Hr 12.5 mg PO QAM lisinopril 40 mg Tablet 40 mg PO QAM metformin 750 mg Tablet Extended Release 24 Hr 750 mg PO BID cholecalciferol (vitamin D3) [Vitamin D3] 25 mcg (1,000 unit) Tablet 25 mcg PO QAM hydrochlorothiazide 12.5 mg Tablet 12.5 mg PO UD Rx Instructions: once or twice weekly glipizide 5 mg Tablet Extended Release 24hr 5 mg PO QAM Eliquis 5 mg Tablet 5 mg PO BID Discontinued celecoxib [Celebrex] 200 mg Capsule 200 mg PO DAILY PRN (Reason: Pain) acetaminophen 500 mg Tablet 500 mg PO Q6H PRN (Reason: Pain) methylprednisolone [Methylpred] 4 mg Tablets,Dose Pack 4 mg PO QAM PRN (Reason: gout flare up) Krames/Other Patient Handouts: Total Knee Replacement, Knee Replace Home Recovery Admission Data Admit Date/Time: 12/19/22 11:04 Attending Provider: Harman Song Admit Provider: Harman Song Primary Care Provider: Rolando Sena Other Interventions: Discharge Summary Assessment (RN) Last Done: 12/20/22 13:05
== END 2022-12-20 14:12 | disposition home health service (06) ==
LOC: ASU 05:27 → 3E 05:27

== ENCOUNTER 2023-09-19 05:05 | Observation (INO) ==
--- NOTE | 2023-08-21 10:05 | History & Physical Report ---
Date of Service August 21, 2023 date of surgery: 09/19/23 Procedure: Right Total Knee Arthroplasty Surgeon: Harman Song, DO Assessment & Plan (1) Arthritis of right knee: Plan: Patient also presents for evaluation of continued right knee pain, he had a s cope done earlier this year has continued pain swelling catching and locking. His arthroscopy photos were reviewed which show degenerative changes tricompartmentally greatest medial compartment and patellofemoral joint with osteophyte formation subchondral sclerosis. He discussed further care with Dr. Song, which to proceed with surgical invention. Plan to be a [employer] right total knee arthroplasty, nonblock. We will recommend overnight stay at the hospital, he does have history of DVT and would recommend Eliquis for 4 weeks, this is what he took after his DVT. The risks and benefits have been discussed including, but not limited to, risk of infection, nerve injury, stiffness, loss of motion, failure to improve, etc. Reasonable outcomes and options of treatment were discussed. An explanation of appropriate alternatives to the procedure that may be advantageous were discussed and their risks and benefits, as well as the risks and benefits of not proceeding with treatment. I offered to answer any additional inquiries concerning the treatment involved. All the patient's questions were answered. The patient is agreeable, understanding of the treatment plan and alternatives, and wishes to proceed with the treatment plan. History of Present Illness Chief Complaint: Right knee pain Primary Care Provider: JOAO Harris Mr Tate is a 68-year-old male who presented for preop prior to his upcoming right total knee replacement. He has a longstanding history of right knee pain which is gradually worsened and is now affecting his daily activities including walking standing using stairs. He underwent a right knee scope earlier this year with no improvement. Prior to that he is undergone injections including steroid as well as viscosupplementation without relief. He tried oral anti-inflammatories and Tylenol as well Allergies Allergy/AdvReac Type Severity Reaction Status Date / Time [id number] Reductase AdvReac Intermediate leg pain Verified 12/19/22 05:57 Inhibitor Home Medications Medication Instructions Recorded Confirmed Type cholecalciferol (vitamin D3) 25 25 mcg PO QAM 08/09/22 12/19/22 History mcg (1,000 unit) tablet (Vitamin D3) glipizide 5 mg tablet, extended 5 mg PO QAM 08/09/22 12/19/22 History release 24 hr hydrochlorothiazide 12.5 mg tablet 12.5 mg PO UD 08/09/22 12/19/22 History lisinopril 40 mg tablet 40 mg PO QAM 08/09/22 12/19/22 History metformin 750 mg tablet,extended 750 mg PO BID 08/09/22 12/19/22 History release 24 hr metoprolol succinate 25 mg 12.5 mg PO QAM 08/09/22 12/19/22 History tablet,extended release 24 hr apixaban 5 mg tablet (Eliquis) 5 mg PO BID 11/28/22 12/19/22 History cefadroxil 500 mg capsule 500 mg PO BID 14 days #28 caps 12/20/22 Rx celecoxib 200 mg capsule (Celebrex) 200 mg PO BID PRN pain #60 caps 12/20/22 Rx oxycodone 5 mg tablet 5 mg PO Q4H PRN pain #30 tabs 12/20/22 Rx Past Med/Surg History Medical History GERD (gastroesophageal reflux disease) rare, takes OTC medication prn Obesity Hx of gout Diabetes mellitus, type 2 NIDDM DVT (deep venous thrombosis) Dx 04/05/22 (Right knee region, felt r/t Covid infection per pt), started on Eliquis, new US showed remaining blot clots, continued Eliquis Hypertension controlled, stable per pt History of COVID-19 01/2022 > symptoms resolved Surgical History History of bilateral carpal tunnel release Hx of arthroscopy of right knee History of anesthesia reaction Slow to wake, post-op nausea H/O foot surgery LEFT HEEL SURGERY (HARDWARE INTACT) H/O thumb surgery LEFT RECONSTRUCTION H/O knee surgery LEFT X6 History of colonoscopy History of appendectomy History of tooth extraction H/O metal removed from eye Family History Other No family history of adverse response to anesthesia Social History Smoking Status: Former smoker Second Hand Exposure: No; Do You Dip or Chew Tobacco: No; Hx Alcohol Use: Yes Hx Substance Use: No Preferred Language: Greenlandic Communication Ability: Effective Operator Engineer Required: No Beliefs That Will Affect Care: None Current Living Situation: Spouse Feels Safe at Home: Yes Assistive Devices: Walker Review of Systems Review of Systems: All systems reviewed & are unremarkable except as noted in HPI & below Constitutional: no fever, no chills and no sweats Respiratory: no cough and no dyspnea Cardiovascular: no chest pain, no dyspnea and no orthopnea Gastrointestinal: no abdominal pain, no nausea and no vomiting Musculoskeletal: as per Subjective / HPI Physical Exam Physical Exam: HT: 5ft 9in WT: 113kg Constitutional: WD/WN, vitals as above no acute distress Respiratory: normal respiratory effort, lungs clear to auscultation no respiratory distress, no labored breathing and does not use accessory muscles Cardiovascular: RRR, no murmur, no edema Gastrointestinal (Abdomen): normal bowel sounds, soft, nontender, no hepatosplenomegaly Musculoskeletal: Knee: + knee abnormal to inspection (Right Knee: ), + e ffusion (+1 effusion), + surgical incision (well healed portals), + limited ROM of knee (ROM 0/3/110), + knee ROM with crepitation, + joint line tenderness (medial joint line) and + Dhiraj's sign positive; no deformity, no skin erythema, no ecchymosis, no valgus laxity, no varus laxity, anterior drawer test negative, Russel's sign negative and pivot shift test negative Results & Data Results & Data Diagnostic Findings Right Knee X-ray: Right knee series showing degenerative changes to the right knee, narrowing of the medial compartment and patello-femoral joint with patellar spurring noted, findings showing joint space narrowing of the medial compartment and patello- femoral joint, osteophyte formation and subchondral sclerosis noted. no acute bony pathology noted.
--- NOTE | 2023-08-22 09:39 | PAT Medication Instructions ---
Medication Instructions Date of Service August 22, 2023 Home Medications cholecalciferol (vitamin D3) 25 mcg (1,000 unit) tablet (Vitamin D3) 25 mcg PO QAM glipizide 5 mg tablet, extended release 24 hr 5 mg PO QAM lisinopril 40 mg tablet 40 mg PO QAM metformin 750 mg tablet,extended release 24 hr 750 mg PO BID metoprolol succinate 25 mg tablet,extended release 24 hr 25 mg PO QAM DO NOT take the morning of surgery cholecalciferol (vitamin D3) 25 mcg (1,000 unit) tablet (Vitamin D3) 25 mcg PO QAM glipizide 5 mg tablet, extended release 24 hr 5 mg PO QAM lisinopril 40 mg tablet 40 mg PO QAM metformin 750 mg tablet,extended release 24 hr 750 mg PO BID Take morning of surgery With a small sip of water, OTHERWISE NOTHING TO EAT OR DRINK AFTER MIDNIGHT: metoprolol succinate 25 mg tablet,extended release 24 hr 25 mg PO QAM Take evening before surgery metformin 750 mg tablet,extended release 24 hr 750 mg PO BID Other Notes If you have any questions please call us at [phone] or [phone] or [phone] or [phone]
--- NOTE | 2023-09-03 14:03 | Anesthesiology Consultation ---
Date of Service September 03, 2023 Assessment & Plan (1) Encounter for pre-operative examination: - Check BSG AM DOS - Infectious disease screening: Per assessment on 09/03/23: No known infectious disease contacts or current infectious disease symptoms. No noted recent Covid positive test result. - Outpatient joint pathway: Per initial OR booking comments, plan for outpatient joint program. Patient seen at [facility] 09/03/23. Patient states he is unaware of possibility of going home/had not planned for that possibility. Received clarification from Dilip at surgeon's office that patient is to be done through inpatient pathway and will update status. Patient not recommended candidate for outpatient joint pathway based on available information. - S/P Left TKA (12/19/22): SAB at L3/4 + PNB at [facility] Chart Review Chart Review: Acceptable Risk for Surgery and Patient seen in Pre Admission Testing Teaching & Discussion Pre-Anesthesia Teaching/Discussion Notes: Instructed NPO after midnight before surgery,except medications with 15 cc of water. Medication instructions provided according to the [facility] guidelines. History Surgery Operation Date: 09/19/23 09:15 Proposed Procedures p OP: Right Total Knee Arthroplasty - Harman Song DO Height/Weight Height: 5 ft 9 in Weight: 113.2 kg Allergies Allergy/AdvReac Type Severity Reaction Status Date / Time [id number] Reductase AdvReac Intermediate leg pain Verified 08/21/23 11:45 Inhibitor Medications Home Medications Medication Instructions Recorded Confirmed Last Taken cholecalciferol (vitamin D3) 25 25 mcg PO QAM 08/09/22 08/21/23 12/18/22 07:30 mcg (1,000 unit) tablet (Vitamin D3) glipizide 5 mg tablet, extended 5 mg PO QAM 08/09/22 08/21/23 12/18/22 07:30 release 24 hr lisinopril 40 mg tablet 40 mg PO QAM 08/09/22 08/21/23 12/18/22 07:30 metformin 750 mg tablet,extended 750 mg PO BID 08/09/22 08/21/23 12/18/22 19:00 release 24 hr metoprolol succinate 25 mg 25 mg PO QAM 08/09/22 08/21/23 12/18/22 07:30 tablet,extended release 24 hr Past Medical History Medical History Obesity Hx of gout Diabetes mellitus, type 2 NIDDM DVT (deep venous thrombosis) 03/2022 (Right knee region, felt r/t Covid infection per pt), previously on Eliquis (since discontinued) Hypertension History of COVID-19 01/2022 > symptoms resolved Exercise / Class Metabolic Activity II 4-5 Yardwork/Stairs/Walk up hill Past Family History Family History Other No family history of adverse response to anesthesia Past Surgical History Surgical History H/O elbow surgery R/L (bursitis) History of total knee replacement Left TKA (12/19/22): SAB at L3/4 + PNB at [facility] History of bilateral carpal tunnel release Hx of arthroscopy of right knee History of anesthesia reaction Slow to wake, post-op nausea + hiccups H/O foot surgery Left heel surgery (+ hardware) H/O thumb surgery Left recontruction H/O knee surgery Left x6 History of colonoscopy History of appendectomy History of tooth extraction H/O metal removed from eye Past Anesthesia History No Family Hx of Anesthesia Complications and Other (Slow to wake, post-op hiccups) History of PONV No Hx of Motion Sickness and History of PONV (Remote hx post-op nausea) Social History Smoking Status: Former smoker tobacco type: cigarettes Do You Dip or Chew Tobacco: No Smoking End Date: Quit 35+ years ago Hx Alcohol Use: Yes alcohol intake frequency: holidays/special occasions only substance use type: does not use Review of Systems Patient denies chest pain, shortness of breath, dyspnea on exertion, fever, chills, cough, wheezing, palpitations. Physical Exam Vital Signs VITALS BP 137/89 P 84 TEMP SP02 97%RA RESP 18 PHYSICAL Full cervical extension range of motion. Full TMJ range of motion. TMD 3 finger breaths Mallampati Score 1 Dentition: edentulous Lungs: clear throughout to auscultation Cardiac: regular rate and rhythm, no murmurs noted Spine: normal Carotid arteries: negative bruit Extremities: no LE edema Short weems Lab Results Anesthesia Preop Results Results Anesthesia Widget: WBC 13.99 K/ul (4.8-10.8) H 09/03/23 Hgb 17.7 g/dl (14.0-18.0) 09/03/23 Hct 52.7 % (42.0-52.0) H 09/03/23 Plt 218 K/uL (130-400) 09/03/23 Na 138 mmol/L (136-145) 09/03/23 K 4.5 mmol/L (3.5-5.1) 09/03/23 Cl 106 mmol/L (98-107) 09/03/23 CO2 23 mmol/L (21-32) 09/03/23 BUN 21 mg/dl (6-23) 09/03/23 Creat 1.31 mg/dl (0.6-1.4) 09/03/23 Glucose Level 119 mg/dl (70-99(Fasting)) H 09/03/23 PT 10.8 Seconds (9.0-12.0) 09/03/23 PTT 27.1 Seconds (21.0-31.0) 09/03/23 INR 1.0 (0.9-1.1) 09/03/23 HA1c 7.8 % (4.5-5.6) H 09/03/23 Urine Color Yellow 09/03/23 Urine Appearance Clear (Clear) 09/03/23 Urine pH 5.0 (4.5-7.5) 09/03/23 Urine Specific [place] 1.014 (1.000-1.030) 09/03/23 Urine Protein 1+ (Negative) H 09/03/23 Urine Glucose (UA) Negative (Negative) 09/03/23 Urine Ketones Negative (Negative) 09/03/23 Urine Blood Negative (Negative) 09/03/23 Urine Nitrite Negative (Negative) 09/03/23 Urine Bilirubin Negative (Negative) 09/03/23 Urine Urobilinogen Negative (Negative) 09/03/23 Urine Leukocyte Esterase Negative (Negative) 09/03/23 Urine WBC (Auto) 1-5 /hpf (0-5) 09/03/23 Urine RBC (Auto) 0-4 /hpf (0-4) 09/03/23 Urine Hyaline Casts (Auto) 1-5 /lpf (0-5) 09/03/23 Urine Epithelial Cells (Auto) 0-5 /lpf (0-5) 09/03/23 Urine Bacteria (Auto) Negative (Negative) 09/03/23 Blood Type A Negative 09/03/23 Antibody Screen NEGATIVE 09/03/23 Testing Laboratory Results Surgeon's office made aware of elevated A1C/WBC* Electrocardiogram Date: 09/03/23 NSR at 87bpm. Chest X-Ray Date: 09/03/23 FINDINGS: No lines and tubes are seen. The cardiomediastinal silhouette is normal. The lungs are clear. No evidence of pleural effusion or pneumothorax. IMPRESSION: No acute chest disease.
[2023-09-19] MEDS ORDERED: ceFAZolin 2000MG 2,000 MG/15 ML SYR IV SCH (06:00)
[2023-09-19] MEDS ORDERED: METOCLOPRAMIDE HCL 10 MG TABLET PO SCH (06:00)
[2023-09-19] MEDS ORDERED: TRANEXAMIC ACID 1,000 MG **IV Intra-op IV SCH (06:00)
[2023-09-19] MEDS ORDERED: TRANEXAMIC ACID 1,000 MG **IV Pre-op IV SCH (06:00)
[2023-09-19] MEDS ORDERED: LR 500ML BOLUS, THEN 15ML/HR IV SCH (06:00)
[2023-09-19] MEDS ORDERED: FAMOTIDINE 20 MG TAB PO SCH (06:00)
[2023-09-19] MEDS ORDERED: LR 60ML/HR IV SCH (06:00)
[2023-09-19] MEDS ORDERED: GABAPENTIN 300 MG CAP PO SCH (06:00)
[2023-09-19] MEDS ORDERED: CeleBREX 200 MG CAP PO SCH (06:00)
[2023-09-19] MEDS ORDERED: ROPIVACAINE 0.5% HCL/PF 150 MG, BUPIVACAINE 0.75% MPF 20 ML, EPINEPHrine 30MG/30ML (OR ... INSTIL SCH (06:00)
[2023-09-19] MEDS ORDERED: ACETAMINOPHEN 500 MG TAB PO SCH (06:00)
[2023-09-19] MEDS ORDERED: ROPIVACAINE 0.5% 5 MG/ML 30 ML VIAL ONE (06:15)
[2023-09-19] MEDS ORDERED: MIDAZOLAM HCL 1 MG/ML 2ML VIAL ONE ×2 (06:45)
[2023-09-19] MEDS ORDERED: fentaNYL citrate PF 100 MCG/2 ML VIAL IV PRN (06:47)
[2023-09-19] MEDS ORDERED: ePHEDrine sulfate 50 MG/ML AMP IV PRN (06:47)
[2023-09-19] MEDS ORDERED: ATROPINE SULFATE 0.1 MG/ML 10ML SYR IV PRN (06:47)
[2023-09-19] MEDS ORDERED: ONDANSETRON INJ 2 MG/ML 2 ML VIAL IV PRN ×2 (06:47→11:33)
[2023-09-19] MEDS ORDERED: HYDROmorphone INJ 2 MG/ML SYR/VIAL IV PRN (06:47)
[2023-09-19] MEDS ORDERED: ORTHO JOINT ANESTHETIC ONE (07:04)
--- NOTE | 2023-09-19 07:18 | History & Physical Bridge Note ---
Date of Service September 19, 2023 History & Physical Bridge Note I have examined the patient, reviewed the History & Physical and in the interval since the performance of the History & Physical I have noted the following changes of clinical significance: no changes noted
[2023-09-19] MEDS ORDERED: GLYCOPYRROLATE 0.2 MG/ML VIAL ONE ×2 (07:31→07:41)
[2023-09-19] MEDS ORDERED: PROPOFOL IV EMULSION 10 MG/ML 20 ML VIAL IV ONE (07:41)
[2023-09-19] MEDS ORDERED: PHENYLEPHRINE 100MCG/ML 10ML SYR IV ONE (07:41)
[2023-09-19] MEDS ORDERED: LIDOCAINE 2% 2 ML VIAL/AMP(20MG/ML) INFIL ONE (07:41)
--- NOTE | 2023-09-19 08:39 | Operative Report ---
Post Operative Report Pre & Post Diagnosis Operation Date: 09/19/23 07:00 Pre-Op Diagnosis: Ostoearthritis Knee Right Post-Op Diagnosis: Ostoearthritis Knee Right I identified the patient and participated in the time-out.: Yes Procedure Operation Date: 09/19/23 07:00 Actual Procedures p Right Total Knee Arthroplasty(Right) utilizing Rivera & Nephew journey 2 lumbar total knee arthroplasty size femur 7 tibia 6 polynine patella 32 jaymie- Harman Song DO Surgeon Harman Song DO Caddy Leo HUIZAR Estimated Blood Loss 5 Findings Consistent with Post-Op Diagnosis Patient presents with varus alignment subchondral sclerosis marginal osteophytes subchondral eburnated [id number] with cystic changes and moderate to large effusion Specimens Bone and cartilage Drains Medium bore Hemovac Anesthesia Type MAC Spinal Regional Complications none Disposition Accompanied Patient To Recovery: No Disposition: Recovery Room Indications Patient presents with severe stage tricompartmental DJD no response to conservative management above intraoperative findings are noted patient failed attempted corticosteroid injection viscosupplementation relative rest activity modification Description of Procedure After proper prepping and draping of the Right lower extremity anterior midline incision was made over the region of the extensor extensor mechanism after meticulous hemostasis was obtained and maintained in subcutaneous tissues a medial parapatellar incision was made The patella was subluxed lateralward the medial lateral gutter were cleaned from any hypertrophic synovitis and scar tissue of the distal femoral block was placed and the distal femoral osteotomy cut was made subsequently the chamfers anterior and posterior osteotomy cuts were made utilizing the 4-in-1 block the tibia was subsequently subluxed anteriorward medial and ateral meniscal remnants were excised in their entirety remnants of the anterior and posterior cruciate ligaments were excised in their entirety excellent exposure of the proximal tibia was obtained the tibial osteotomy guide was placed on the proximal tibial osteotomy cut was made once again the knee was irrigated with copious amounts of sterile saline solution the patella was subsequently everted lateralward thickened scar tissue around the patella was removed the patella was subsequently cut utilizing a freehand technique and was drilled prepared for final preparation and placement of patella socially flexion-extension gaps were checked and the equal and symmetric trials were placed to the appropriate femoral and tibial trials with poly-spacer being placed for equal flexion and extension gaps and full range of motion inclu ding extension to 0 and flexion to 140 the trial components after having been taken to recovery range of motion was subsequently removed meticulous hemostasis was obtained and maintained subsequently a knee block injection of joint cocktail including ropivacaine 0.5% 150 mg. Bupivacaine 0.5% epinephrine 1- 200,030 mL's toradol 30 mg dexamethasone 4 mg ketamine 10 mg clonidine 100 micrograms normal saline solution 30 mg was infiltrated into the soft tissues of the posterior knee medial lateral gutters and periosteal synovium special attention was paid to protect neurovascular structures at all times subsequently trial components having been removed the knee was irrigated with sterile saline solution. debris was removed the proximal tibia was subsequently prepared and was made ready for the placement of the tibial component tibial component was also cemented and tamped into position the femoral component was subsequently placed and cemented in the position the patellar component was subsequently cemented in position because hemostasis once again obtained and maintained wound having been thoroughly irrigated with debridement and debridement lavage was performed as well as a medial parapatellar incision closed with #1 Vicryl in interrupted fashion subcutaneous was closed with #2 Vicryl skin was closed with skin clips. PA-C was necessary for prepping and drapping as well as wound closure of deep fascia Sub cutaneous tissue and skin and was necessary for the case. A sterile compressive dressing was placed patient was taken to recovery in stable condition of report dictated by Duncan I attest to the content of the Intraoperative Record and any orders documented therein. Any exceptions are noted below.Due to the complex nature of the procedure, the entire surgery was performed with the operational assistance of Leo HUIZAR. The assistant track and field coach, under direct supervision, was involved in the actual performance of all aspects of the surgical procedure including hemostasis, tissue retraction and incision, instrument management, patient positioning, and wound closure. I attest to the content of the Intraoperative Record and any orders documented therein. Any exceptions are noted below.
--- NOTE | 2023-09-19 09:33 | XRay Report ---
XR knee RT 1 or 2V routine CLINICAL HISTORY: Postoperative evaluation. COMPARISON: None FINDINGS: Alignment of the total right knee arthroplasty is anatomic. No periprosthetic fracture or unexpected radiopaque foreign bodies are present. Surgical drain is in place. IMPRESSION: Expected findings following total right knee arthroplasty. ACT 112: Negative or not required by law. Electronically signed by: Jason Perrin M.D. 09/19/2023 9:31 AM
--- NOTE | 2023-09-19 10:12 | Anesthesiology Progress Note ---
Date of Service September 19, 2023 Anesthesia Post Procedure Vital Signs Vital Signs: Temp Pulse Pulse Resp BP Pulse Ox O2 Del Method 09/19/23 10:01 36.3 C L 74 19 97/73 L 97 Room Air 09/19/23 09:50 36.3 C L 79 22 117/82 97 Room Air 09/19/23 09:40 80 21 108/68 98 Room Air 09/19/23 09:30 75 12 98/68 L 97 Room Air 09/19/23 09:20 82 17 96/70 L 97 Room Air 09/19/23 09:13 36.0 C L 89 16 96/66 L 96 Room Air 09/19/23 05:36 36.5 C 78 16 142/87 H 97 Room Air Pain Intensity Right Knee: Pain Intensity: 0 Transfer of Care Handoff Completed per policy Notes Mental Status: alert / awake / arousable and participated in evaluation Patient Amnestic to Procedure: Yes Nausea / Vomiting: adequately controlled Pain: adequately controlled Airway Patency, RR, SpO2: stable & adequate BP & HR: stable & adequate Hydration State: stable & adequate Neuraxial Anesthesia: was administered and sensory block is resolving Anesthetic Complications: no major complications apparent and Pt Satisfied with anesthetic care
[2023-09-19] MEDS ORDERED: bisacodyL 10 MG SUPP PR PRN (11:33)
[2023-09-19] MEDS ORDERED: NALOXONE HCL 0.4 MG/1 ML VIAL/CARP IV PRN (11:33)
[2023-09-19] MEDS ORDERED: HYDROmorphone INJ 0.5 MG/0.5 ML SYR IV PRN (11:33)
[2023-09-19] MEDS ORDERED: MAGNESIUM HYDROXIDE SUSP 30 ML UDC PO PRN (11:33)
[2023-09-19] MEDS ORDERED: diphenhydrAMINE 50 MG/ML VIAL IV PRN (11:33)
[2023-09-19] MEDS ORDERED: PHARMACY GLYCEMIC MGMT CONSULT PRN ×2 (11:33→13:14)
[2023-09-19] MEDS: SODIUM CHLORIDE 0.9% 1,000 ML IV SCH ×2 (12:21→19:52)
--- NOTE | 2023-09-19 12:39 | Hospitalist Consultation ---
Date of Consultation September 19, 2023 Assessment & Plan (1) S/P right knee surgery: Total right knee arthroplasty with Dr. Harman Song on 09/19/2023 Postop right knee x-ray revealed expected findings with anatomic alignment Hx of left total knee arthroplasty on 12/19/22; has been using walker to help with ambulation since Perioperative antibiotics, pain control, DVT prophylaxis, and IV fluids per the primary team Agree with a.m. CBC and BMP tomorrow, we will follow Daily drain management OOB to chair with assistance as tolerated PT/OT consulted (2) Diabetes mellitus, type 2: Last A1c was 7.8% on 09/03/2023; no need to repeat A1c postop Hold metformin and glipizide Agree with SSI while inpatient; goal BSG range 482199oo/dL, CF 25, carb ratio 8 BSG ACHS T2DM diet Adjust regimen as needed Pharmacy glycemic consult as patient received dexamethasone prior to procedure (3) Hypertension: BP 119/81 at time of consult Continue metoprolol Continue lisinopril (pending BMP in the morning; if creatinine greater than 1.4 in a.m., hold for 1 additional day) (4) History of DVT (deep vein thrombosis): RLE in March 2022 Was previously on Eliquis, but was cleared to come off in January 2023, per patient Agree with decision to place patient on Eliquis 2.5 mg p.o. BID x 30 days postop (5) Hx of gout: Not on any maintenance medications He reports that he was given a steroid taper for an acute episode of gout in the past Plan Agree with current medical decision making: Disposition: MedSurg T2DM diet VTE PPx: SCDs/teds Thank you for allowing us to participate in the care of this patient, please reach out with any questions or concerns. Supervising Physician Co-Signing Physician Notes Chart reviewed, case discussed with Power Bhatia I agree with the assessment and plan as above except as otherwise noted Labs and images reviewed 68-year-old male with past medical history of DM 2, gout, DVT, hypertension who presents for scheduled right knee arthroplasty. We are consulted for postoperative management of hypertension/DM2 without acute concerns. BSG this morning 124. Metformin/glipizide temporarily held, converted to basal bolus insulin on pharmacy is following for assistance in management. Baseline creatinine is normal, vitals are normal at time of consultation. BMP pending, may resume JOHNIE 09/20 if doing well, continue metoprolol. based on prior history of DVT agree with Eliquis 2.5 twice daily for postop prophylaxis, no signs of hemodynamically significant bleeding at time of consultation. Agree with management above, no acute changes to management plan as noted at this time. Will follow morning CBC/BMP and make adjustments if needed History of Present Illness Reason for Consultation: Postop medical management Requesting Physician: DO Leo Davis PA-C Attending Physician: Harman Song DO History of Present Illness Johan is a pleasant 68-year-old male with PMH of OA of the right knee, HTN, T2DM, GERD, gout, and DVT (on Eliquis). He presented for a right total knee arthroplasty with Dr. Harman Song on 09/19/23 at 0700. Full procedure: "Right Total Knee Arthroplasty (Right) utilizing Rivera & Nephew journey 2 lumbar total knee arthroplasty size femur 7 tibia 6 polynine patella 32 oval". Per review of the operative report, EBL was listed as 5 cc, MAC spinal regional anesthesia was used, and there were no reported intraoperative complications. Patient reports 4/10 right knee pain at time of consult; no radiation down the RLE or up to the hip/back. He reports he has been eating and drinking okay. He has not gotten out of bed or tried to urinate yet post-op. He reports that he only took metoprolol this morning; no other medications. No recent change in medications. He was previously on Eliquis for a DVT in March 2022, but was cleared to be taken off in January 2023, per patient. Was not currently on a blood thinner coming into surgery. No at home oxygen use. No CPAP. He has been using a walker to help with ambulation at home since November when he had his left knee arthroplasty. Per review of patient's vitals, he has been mildly hypotensive postop, but is currently 119/81 at time of consultation. ROS: Patient endorses scratchy throat, dry cough, urinary frequency (ongoing), and nocturia (ongoing). Patient denies fever, chills, sweating, DAVALOS, dizziness, lightheadedness, CP, SOB, pleuritic CP, abdominal pain, N/V, burning with urination, dysuria, or numbness/tingling in the legs or arms. Allergies Allergy/AdvReac Type Severity Reaction Status Date / Time [id number] Reductase AdvReac Intermediate leg pain Verified 09/19/23 05:35 Inhibitor Home Medications Medication Instructions Recorded Confirmed Type cholecalciferol (vitamin D3) 25 25 mcg PO QAM 08/09/22 09/19/23 History mcg (1,000 unit) tablet (Vitamin D3) glipizide 5 mg tablet, extended 5 mg PO QAM 08/09/22 09/19/23 History release 24 hr lisinopril 40 mg tablet 40 mg PO QAM 08/09/22 09/19/23 History metformin 750 mg tablet,extended 750 mg PO BID 08/09/22 09/19/23 History release 24 hr metoprolol succinate 25 mg 25 mg PO QAM 08/09/22 09/19/23 History tablet,extended release 24 hr Patient History Medical History (Updated 09/19/23 @ 13:09 by Ethan Cho PA-C) History of DVT (deep vein thrombosis) Obesity Hx of gout Diabetes mellitus, type 2 NIDDM DVT (deep venous thrombosis) 03/2022 (Right knee region, felt r/t Covid infection per pt), previously on Eliquis (since discontinued) Hypertension History of COVID-19 01/2022 > symptoms resolved Surgical History (Updated 09/19/23 @ 12:34 by Ethan Cho PA-C) H/O elbow surgery R/L (bursitis) History of total knee replacement Left TKA (12/19/22): SAB at L3/4 + PNB at [facility] History of bilateral carpal tunnel release Hx of arthroscopy of right knee History of anesthesia reaction Slow to wake, post-op nausea + hiccups H/O foot surgery Left heel surgery (+ hardware) H/O thumb surgery Left recontruction H/O knee surgery Left x6 History of colonoscopy History of appendectomy History of tooth extraction H/O metal removed from eye Family History Other No family history of adverse response to anesthesia Social History Smoking Status: Former smoker Tobacco Type: Cigarettes Smoking End Date: Quit 35+ years ago; Second Hand Exposure: Yes (as a child); Do You Dip or Chew Tobacco: No; Hx Alcohol Use: Yes Preferred Language: Bangladeshi Communication Ability: Effective Residential Framing Carpenter Required: No Beliefs That Will Affect Care: None Current Living Situation: Spouse Feels Safe at Home: Yes Safety Concerns: Feels Safe At This Time Assistive Devices: Denture - Upper, Denture - Lower and Glasses Assistive Devices Comment: reading glasses Review of Systems Review of Systems: See HPI above Physical Exam Physical Exam: General: no acute distress; pleasant affect; non-toxic appearing; well- nourished; cooperative; SpO2 97% on RA HEENT: normocephalic, atraumatic; no scleral icterus; moist mucus membrane; vision and hearing grossly intact Neck: supple; no lymphadenopathy; trachea midline Skin: warm, dry without signs of tenting; no cyanosis; no rashes, bruising, lesions, or erythema noted CV: chest wall NTP; RRR; S1/S2 normal; no murmurs/rubs/gallops; pulses intact and symmetric at radial, DP, and PT Lungs: no acute respiratory distress; symmetrical chest wall expansion; clear breath sounds across all lung ceron w/o adventitious sounds; no wheezing ABD: Soft, NTP; BS present; no rebound/guarding; no distention; back NTP; negati ve CVA tenderness LEs: Patient demonstrates ability to wiggle toes, flex/extend ankles, and bend knees bilaterally; he endorses symmetric and intact sensation in the feet B/L; pulses intact and symmetric in the DP/PT B/L MSK: no tics or fasciculations; no edema noted in the LEs b/l (teds and SCDs present) Neuro: A&Ox3; normal mood and affect; fluent speech; no focal deficits; sensation grossly intact Results & Data Results & Data Vital Signs (Past 12 Hours) Vital Signs Temp Pulse Pulse Resp BP Pulse Ox O2 Del Method 09/19/23 12:00 74 18 100/68 95 Room Air 09/19/23 11:30 83 18 101/68 95 Room Air 09/19/23 11:00 36.3 C L 72 15 91/71 L 93 Room Air 09/19/23 10:45 36.3 C L 80 17 89/67 L 93 Room Air 09/19/23 10:30 36.3 C L 76 15 102/71 93 Room Air 09/19/23 10:15 75 22 108/52 L 96 Room Air 09/19/23 10:10 71 15 105/67 96 Room Air 09/19/23 10:01 36.3 C L 74 19 97/73 L 97 Room Air 09/19/23 09:50 36.3 C L 79 22 117/82 97 Room Air 09/19/23 09:40 80 21 108/68 98 Room Air 09/19/23 09:30 75 12 98/68 L 97 Room Air 09/19/23 09:20 82 17 96/70 L 97 Room Air 09/19/23 09:13 36.0 C L 89 16 96/66 L 96 Room Air 09/19/23 05:36 36.5 C 78 16 142/87 H 97 Room Air Diagnostic Findings Knee X-Ray 09/19/23 09:16 XR knee RT 1 or 2V routine CLINICAL HISTORY: Postoperative evaluation. COMPARISON: None FINDINGS: Alignment of the total right knee arthroplasty is anatomic. No periprosthetic fracture or unexpected radiopaque foreign bodies are present. Surgical drain is in place. IMPRESSION: Expected findings following total right knee arthroplasty. ACT 112: Negative or not required by law. Electronically signed by: Jason Perrin M.D. 09/19/2023 9:31 AM PG Care Time/CCT Total # of Minutes Spent Total Time Spent with Patient: Total time spent is greater than 50% in coordination of care (as documented) at patient's floor/unit and/or counseling patient: [place] [address] IN/OBS CONSULT LVL 2,35M Patient Type New Medical Decision Making Low Complexity Diagnoses S/P right knee surgery Z98.890 Diabetes mellitus, type 2 E11.9 Hypertension I10 History of DVT (deep vein thrombosis) Z86.718 Hx of gout Z87.39
[2023-09-19] MEDS ORDERED: GLUCOSE 40% GEL 15 GM TUBE PO PRN (13:14)
[2023-09-19] MEDS ORDERED: CARBOHYDRATES FOR HYPOGLYCEMIA PO PRN (13:14)
[2023-09-19] MEDS: ACETAMINOPHEN 500 MG TAB PO SCH ×2 (13:14→22:14)
[2023-09-19] MEDS ORDERED: DEXTROSE 50% 50 ML SYRINGE IV PRN (13:14)
[2023-09-19] MEDS ORDERED: GLUCAGON FOR INJ 1 MG VIAL SQ PRN (13:14)
[2023-09-19] MEDS ORDERED: GLUCOSE 10 TAB/TUBE PO PRN (13:14)
[2023-09-19] MEDS: INSULIN ASPART PER UNIT CHARGE SC SCH ×3 (13:22→20:55)
--- NOTE | 2023-09-19 15:02 | Pharmacy Report ---
Pharmacy Glycemic Short Note 2 - Date of Service September 19, 2023 - Glycemic Short BSG Results (Last 24 hours): 09/19/23 09/19/23 05:45 09:15 POC Glucose 141 H 124 H OUTPATIENT ANTIDIABETIC REGIMEN: * metformin 750mg PO BID * Glipizide ER 5mg PO QAM * HbA1c 7.8% ASSESSMENT: * Johan is a 68 YOM admitted status post right total knee arthroplasty with a history of T2DM. Pharmacy has been consulted for glycemic management while inpatient. * Fasting BSG this AM acceptable, patient received an Ortho mix this morning with dexamethasone and pre and postoperative Ancef. Will give 20 units (~0.15 units/kg) of basal insulin to cover these stressors and basal needs * NovoLog initiated at a weight based stress of 2.5 PLAN FOR INPATIENT GLYCEMIC CONTROL: * Hold outpatient oral diabetes medications * Basal insulin * Lantus 20 units SQ daily * Bolus insulin * NovoLog per scale ACHS or Q6hrs while NPO * Goal Range: Low 110 mg/dL - High 140 mg/dL * Correction Factor: 25 mg/dL/unit * Nutritional / Prandial insulin per carb ratio of 1 unit per 8 grams CHO consumed
[2023-09-19] MEDS ORDERED: INSULIN ASPART PER UNIT CHARGE SC SCH (16:30)
[2023-09-19] MEDS: ceFAZolin 2000MG 2,000 MG/15 ML SYR IV SCH ×2 (17:29→22:14)
[2023-09-19] MEDS: oxyCODONE HCL IR 5 MG TAB (IMMEDIATE RELEASE) PO PRN (17:29)
[2023-09-19] MEDS: DOCUSATE SODIUM 100 MG CAP PO SCH (19:53)
[2023-09-19] MEDS ORDERED: NON-FORMULARY MEDICATION (Metformin 750 mg Tablet Extended Release 24 Hr) PO SCH (21:00)
[2023-09-19] MEDS ORDERED: LANTUS PER UNIT CHARGE SQ SCH (21:00)
[2023-09-19] MEDS ORDERED: SENNA 8.6 MG TAB PO SCH (21:00)
[2023-09-20] MEDS: ACETAMINOPHEN 500 MG TAB PO SCH (05:12)
--- NOTE | 2023-09-20 07:12 | Orthopedic Progress Note ---
Date of Service September 20, 2023 Assessment & Plan (1) History of total right knee replacement: Plan: POD #1 s/p Right TKA pt/ot dvt proph with DIPTI/SCD/Eliquis, has h/o DVT plan for d/c home with HHPT Admission and Anticipated Discharge Date Admission Date: September 19, 2023 Subjective POD #1 s/p Right TKA Review of Systems Constitutional: no fever, no chills and no sweats Respiratory: no cough and no dyspnea Cardiovascular: no chest pain and no dyspnea Gastrointestinal: no abdominal pain, no nausea and no vomiting Physical Exam Physical Exam: Vital Signs Temp 36.6 C 09/20/23 03:40 Pulse 84 09/20/23 03:40 Resp 18 09/20/23 03:40 BP 96/64 L 09/20/23 03:40 Pulse Ox 97 09/20/23 03:40 O2 Del Method Room Air 09/20/23 03:40 Intake & Output 09/19/23 09/20/23 09/20/23 18:59 06:59 18:59 Intake Total 1216 / 2964.334 1748.334 / 2964.33 4 Output Total 2125 / 2475 350 / 2475 Balance -909 / 392.717 3116.334 / 489.334 Intake: IV 1200 / 2948.334 1748.334 / 2948.33 4 Lactated Ringe r's 1,000 ml @ 15 1000 / 1000 mls/hr IV .Q24 H [facility] Rx#: [id number] Sodium Chlorid e 0.9% 1,000 ml @ 1748.334 / 1748.33 4 100 mls/hr IV .Q10H [facility] Rx#: [id number] Tranexamic Aci d / 0.7% NaCl 1, 200 / 200 000 mg In 100 ml @ 600 mls/hr IV TODAY@0600 [facility] Rx#:[id number] IV Perioperative / 16 Output: Estimated Blood Loss 1800 / 1800 Drain Output 325 / 675 350 / 675 Right Knee 325 / 675 350 / 675 Other: # Unmeasured Voi ds 1 Musculoskeletal: Right Leg: NVDI, calf SNT, negative shilpa sign. DP palpable, able to wiggle toes/ankle movement without difficulty. dressing clean dry and intact. Results & Data Vital Signs (Past 12 Hours) Vital Signs Temp Pulse Resp BP Pulse Ox O2 Del Method 09/20/23 03:40 36.6 C 84 18 96/64 L 97 Room Air 09/19/23 23:35 36.5 C 89 18 97/60 L 96 Room Air 09/19/23 20:04 36.4 C L 69 18 110/73 95 Room Air Laboratory Results Laboratory Results POC Glucose 137 mg/dl (70-99) H 09/19/23 20:38 Impressions Knee X-Ray 09/19/23 09:16 XR knee RT 1 or 2V routine CLINICAL HISTORY: Postoperative evaluation. COMPARISON: None FINDINGS: Alignment of the total right knee arthroplasty is anatomic. No periprosthetic fracture or unexpected radiopaque foreign bodies are present. Surgical drain is in place. IMPRESSION: Expected findings following total right knee arthroplasty. ACT 112: Negative or not required by law. Electronically signed by: Jason Perrin M.D. 09/19/2023 9:31 AM
[2023-09-20 07:30] LABS: Hemoglobin 13.7 g/dl (14.0-18.0); Mean Corpuscular Hemoglobin 28.8 pg (25.0-34.0); Mean Corpuscular Hgb Conc 33.4 g/dL (32.0-36.0); Mean Corpuscular Volume 86.3 fL (80.0-100.0); Platelet Count 165 K/uL (130-400); RDW Standard Deviation 41.1 fL (36.4-46.3); Red Blood Count 4.75 M/uL (4.70-6.10); White Blood Count 21.57 K/ul (4.8-10.8)
[2023-09-20 07:41] LABS: BUN Creatinine Ratio 14.4 (10-20); Calcium 8.4 mg/dl (8.6-10.3); Creatinine Clr Calc Pharmacy 61.8 ml/min; Est GFR (African American) 57.3 ml/min; Est GFR (Non-African American) 49.4 ml/min; Potassium 4.8 mmol/L (3.5-5.1)
[2023-09-20] MEDS ORDERED: metFORMIN HCL 500 MG TAB PO SCH (08:00)
[2023-09-20] MEDS: INSULIN ASPART PER UNIT CHARGE SC SCH (08:16)
[2023-09-20] MEDS: DOCUSATE SODIUM 100 MG CAP PO SCH (08:20)
[2023-09-20] MEDS ORDERED: METOPROLOL SUCC 25MG EXT REL TAB PO SCH (09:00)
[2023-09-20] MEDS ORDERED: glipiZIDE ER 2.5 MG TABCR PO SCH (09:00)
[2023-09-20] MEDS ORDERED: CHOLECALCIFEROL 1,000 UNITS 25 MCG TAB PO SCH (09:00)
[2023-09-20] MEDS ORDERED: APIXABAN 2.5 MG TAB PO SCH (09:00)
[2023-09-20] MEDS ORDERED: MULTIVITAMIN TAB PO SCH (09:00)
[2023-09-20] MEDS ORDERED: lisinopril 40 MG TAB PO SCH (09:00)
[2023-09-20] MEDS ORDERED: NON-FORMULARY MEDICATION (Glipizide 5 mg Tablet Extended Release 24hr) PO SCH (09:00)
--- NOTE | 2023-09-20 09:04 | Hospitalist Progress Note ---
Date of Service September 20, 2023 Assessment & Plan (1) S/P right knee surgery: Plan: Total right knee arthroplasty with Dr. Harman Song on 09/19/2023 Hx of left total knee arthroplasty on 12/19/22; has been using walker to help with ambulation since Perioperative antibiotics, pain control, DVT prophylaxis, and IV fluids per the primary team PT/OT consulted (2) Leukocytosis: Plan: WBC 21 on AM labs - Upon chart review, WBC elevated to 27 after knee surgery in November. However, preop and prior CBC showed mild elevation~13 - No signs or symptoms of infection today - Recommend follow up in the outpatient setting. (3) Diabetes mellitus, type 2: Plan: Last A1c was 7.8% on 09/03/2023; no need to repeat A1c postop Hold metformin and glipizide while inpatient, can resume at discharge Pharmacy glycemic consult as patient received dexamethasone prior to procedure (4) Hypertension: Plan: BP 119/81 at time of consult Continue metoprolol Held Lisinopril 09/20, due to Cr 1.4, can resume 09/21 (5) History of DVT (deep vein thrombosis): Plan: RLE in March 2022 Was previously on Eliquis, but was cleared to come off in January 2023, per patient Agree with decision to place patient on Eliquis 2.5 mg p.o. BID x 30 days postop (6) Hx of gout: Plan: Not on any maintenance medications He reports that he was given a steroid taper for an acute episode of gout in the past Plan Medically stable for discharge. Recommend outpatient follow up for elevated WBC at baseline. Resume Lisinopril 09/21 Thank you for allowing us to participate in the care of this patient, please reach out with any questions or concerns. Admission and Anticipated Discharge Date Admission Date: September 19, 2023 Supervising Physician Co-Signing Physician Notes PA Supervision Note: I did not personally see or examine the patient today, but I verified all orr points of BHUPENDRA Dukes's assessment and plan with the following exceptions/additions: None Subjective Patient seen sitting up in the chair. Reports feeling well, pain in knee is well controlled. Good appetite, has not had a bowel movement yet but has been taking stool softeners. Encouraged to continue at home while taking narcotics. Denies CP or SOB Review of Systems Review of Systems: All systems reviewed & are unremarkable except as noted in Subjective Physical Exam Physical Exam: General: WN/WD, NAD, Sitting up in the chair Resp: normal respiratory effort, lungs clear to auscultation CV: RRR, no murmur, Extremities: jackelyn bandage over right knee, ice applie Neuro: A&O x3, plesant Results & Data Results & Data Vital Signs (Past 12 Hours) Vital Signs Temp Pulse Resp BP Pulse Ox O2 Del Method 09/20/23 07:27 36.5 C 68 16 143/88 H 98 Room Air 09/20/23 03:40 36.6 C 84 18 96/64 L 97 Room Air 09/19/23 23:35 36.5 C 89 18 97/60 L 96 Room Air Laboratory Results CBC and chemistry reviewed PG Care Time/CCT Total # of Minutes Spent Total Time Spent with Patient: Total time spent is greater than 50% in coordination of care (as documented) at patient's floor/unit and/or counseling patient: Coding Level of Care Code 72674 SUB INP/OBS CARE 2/35MIN Diagnoses S/P right knee surgery Z98.890 Leukocytosis D72.829 Diabetes mellitus, type 2 E11.9 Hypertension I10 History of DVT (deep vein thrombosis) Z86.718 Hx of gout Z87.39
[2023-09-20] MEDS: oxyCODONE HCL IR 5 MG TAB (IMMEDIATE RELEASE) PO PRN (11:30)
[2023-09-20] MEDS ORDERED: LANTUS PER UNIT CHARGE SC SCH (16:30)
--- NOTE | 2023-09-25 14:32 | Discharge Summary ---
Date of Service September 25, 2023 Admission HPI Per Admitting Provider Mr Tate is a 68-year-old male who presented for preop prior to his upcoming right total knee replacement. He has a longstanding history of right knee pain which is gradually worsened and is now affecting his daily activities including walking standing using stairs. He underwent a right knee scope earlier this year with no improvement. Prior to that he is undergone injections including steroid as well as viscosupplementation without relief. He tried oral anti- inflammatories and Tylenol as well Admission Exam Per Admitting Provider Physical Exam: HT: 5ft 9in WT: 113kg Constitutional: WD/WN, vitals as above no acute distress Respiratory: normal respiratory effort, lungs clear to auscultation no respiratory distress, no labored breathing and does not use accessory muscles Cardiovascular: RRR, no murmur, no edema Gastrointestinal (Abdomen): normal bowel sounds, soft, nontender, no hepatosplenomegaly Musculoskeletal: Knee: + knee abnormal to inspection (Right Knee: ), + effusion (+1 effusion), + surgical incision (well healed portals), + limited ROM of knee (ROM 0/3/110), + knee ROM with crepitation, + joint line tenderness (medial joint line) and + Dhiraj's sign positive; no deformity, no skin erythema, no ecchymosis, no valgus laxity, no varus laxity, anterior drawer test negative, Russel's sign negative and pivot shift test negative Principal Diagnosis Right Knee DJD Discharge Data Allergies Allergy/AdvReac Type Severity Reaction Status Date / Time Aawbxwj-DAA-NcA Reductase AdvReac Intermediate leg pain Verified 09/19/23 05:35 Inhibitor Consultations 09/19/23 11:33 Consult Hospitalist Routine Procedures Performed Operation Date: 09/19/23 07:00 Actual Procedures p Right Total Knee Arthroplasty(Right) - Harman Kc DO Ordered Studies 09/19/23 05:00 US - OR guided needle placemen Routine Hospital Course (1) History of total right knee replacement: Patient: GET TATE Admit Date: 09/19/23 MR#: [id number] Att Phy: Harman Kc,D.OMalka Acct ID: [id number] Zena Phy: Rolando Sena Date: 1955 Fam Phy: Age: 68 Location: 3E Sex: M Room/Bed: E320-1 cc: ~ *NOTICE TO RECEIVING LIBERTARIAN/AGENCY This information is strictly Confidential and protected under [place] law. [place] law prohibits you from making any further disclosure of this information unless further disclosure is expressly permitted by the written consent of the person to whom it pertains or is authorized by law. A general authorization for the release of medical or other information is not sufficient for this purpose. Hospital accepts no responsibility if the information is made available to any other person, INCLUDING THE PATIENT. Date of Service September 20, 2023 Assessment & Plan (1) History of total right knee replacement: Plan: POD #1 s/p Right TKA pt/ot dvt proph with DIPTI/SCD/Eliquis, has h/o DVT plan for d/c home with HHPT Admission and Anticipated Discharge Date Admission Date: September 19, 2023 Subjective POD #1 s/p Right TKA Review of Systems Constitutional: no fever, no chills and no sweats Respiratory: no cough and no dyspnea Cardiovascular: no chest pain and no dyspnea Gastrointestinal: no abdominal pain, no nausea and no vomiting Physical Exam Physical Exam: Vital Signs Temp 36.6 C 09/20/23 03:40 Pulse 84 09/20/23 03:40 Resp 18 09/20/23 03:40 BP 96/64 L 09/20/23 03:40 Pulse Ox 97 09/20/23 03:40 O2 Del Method Room Air 09/20/23 03:40 Intake & Output 09/19/23 09/20/23 09/20/23 18:59 06:59 18:59 Intake Total 1216 / 2964.334 1748.334 / 2964.33 4 Output Total 2125 / 2475 350 / 2475 Balance -909 / 993.134 2534.334 / 489.334 Intake: IV 1200 / 2948.334 1748.334 / 2948.33 4 Lactated Ringe r's 1,000 ml @ 15 1000 / 1000 mls/hr IV .Q24 H [facility] Rx#: [id number] Sodium Chlorid e 0.9% 1,000 ml @ 1748.334 / 1748.33 4 100 mls/hr IV .Q10H [facility] Rx#: [id number] Tranexamic Aci d / 0.7% NaCl 1, 200 / 200 000 mg In 100 ml @ 600 mls/hr IV TODAY@0600 [facility] Rx#:[id number] IV Perioperative Output: Estimated Blood Loss 1800 / 1800 Drain Output 325 / 675 350 / 675 Right Knee 325 / 675 350 / 675 Other: # Unmeasured Voi ds 1 Musculoskeletal: Right Leg: NVDI, calf SNT, negative shilpa sign. DP palpable, able to wiggle toes/ankle movement without difficulty. dressing clean dry and intact. Results & Data Vital Signs (Past 12 Hours) Vital Signs Temp Pulse Resp BP Pulse Ox O2 Del Method 09/20/23 03:40 36.6 C 84 18 96/64 L 97 Room Air 09/19/23 23:35 36.5 C 89 18 97/60 L 96 Room Air 09/19/23 20:04 36.4 C L 69 18 110/73 95 Room Air Laboratory Results Laboratory Results POC Glucose 137 mg/dl (70-99) H 09/19/23 20:38 Impressions Knee X-Ray 09/19/23 09:16 XR knee RT 1 or 2V routine CLINICAL HISTORY: Postoperative evaluation. COMPARISON: None FINDINGS: Alignment of the total right knee arthroplasty is anatomic. No periprosthetic fracture or unexpected radiopaque foreign bodies are present. Surgical drain is in place. IMPRESSION: Expected findings following total right knee arthroplasty. ACT 112: Negative or not required by law. Electronically signed by: Jason Perrin M.D. 09/19/2023 9:31 AM Signed By: <Electronically signed by Tylor Rand PA-C> 09/20/23712 <Electronically signed by Geoff Live M.D.> 09/20/23729 Created: 09/20/23 0711 Total Time Total Time Spent Total Time Spent (In Minutes): 5 Discharge Plan Discharge Items Patient Disposition: Home - Home Health Services Reason For Visit: Ostoearthritis Knee Right Discharge Diagnosis: Osteoarthritis right knee Activity: Per Instructions section Non-emergency contact: Surgeon Call non-emergency contact if: you have any medication questions, your pain is not controlled, your temperature is above 101.5, your wound has increased redness and your wound has increased drainage Follow-up/Referrals: Harman Kc, [Surgeon] - ( follow-up with Dr. Kc or his PA in 2 weeks from the day of your surgery for your first postoperative visit) Rolando Sena CRNP [Primary Care Provider] - Diet: Carb Consistent or DM2 Addtl Attending Provider Instructions: ACTIVITY RECOMMENDATIONS: SELF CARE INSTRUCTIONS AFTER TOTAL KNEE REPLACEMENT A. You may need to continue a physical therapy program after discharge from the hospital. There are several options available to you. Your doctor will assist you in selecting the best one for you. 1. An out-patient facility 2 to 3 times a week for therapy or home therapy. 2. Continue working on all exercises taught to you in the hospital. Your goals should be to increase bending of your knee to 90 degrees and beyond and to fully straighten your knee. B. You may progress at your own pace from walking with a walker or crutches to a cane; then to no assistive devices. C. Make walking a part of your daily routine. Be up as much as comfortable with rest periods throughout the day. Rest with leg elevation is very important. Use the ice wrap frequently for the first 3-4 weeks. D. There are no restrictions on activities. You may ride in a car, shop, participate in manager product marketing and all social activities. E. Wear the long elastic stockings (DIPTI hose) 20 hours a day for 2 weeks after surgery. They can be removed several times a day for laundering and for a bath. F. You may shower, no tub baths until cleared by your doctor. SPECIAL CARE INSTRUCTIONS: VERY IMPORTANT TO READ AND REVIEW A. There are a few signs you need to watch for after you are home. Call [facility] [place] if you notice any of the followin. Increased severe knee pain. Some pain is expected especially when you exercise. 2. Increased swelling in your leg or knee; pain or swelling of the calf muscle in either lower leg. 3. Any fluid drainage from the incision. 4. Shortness of breath or chest pain. B. Please call [facility] at if you have any concerns or questions about your operation or recovery. The doctor or his nurse will return your call promptly. C. You must take antibiotics before dental work, bladder, bowel or other dragan carly. Your doctor will provide you with a permanent care to carry describing this precaution. IMPORTANT: * REMEMBER TO TAKE ASPIRIN, 81 MG, TWICE DAILY FOR 4 WEEKS UNLESS OTHERWISE DIRECTED. THIS IS YOUR BLOOD THINNER. * HIGH RISK PATIENTS MAY BE PRESCRIBED A STRONGER BLOOD THINNER. THIS WILL BE PROVIDED AT DISCHARGE. * CALL IF INCREASED PAIN, REDNESS, DRAINAGE OR FEVER GREATER THAT 101. * WEAR DIPTI HOSE 20 HOURS PER DAY FOR 2 WEEKS. * Denis Dressing - This is a large suction dressing covering your incision. This will help pull any excess drainage from the wound and allow your incision to heal properly. You may shower with this if you can keep the unit outside of the shower. If any bleeding or leakage is noted please call your doctor's office. This will remain on your incision for 7 days and then should be removed. This can be done yourself or by the home nursing staff if applicable. The entire unit is disposable once removed. Once removed, keep incision clean and dry. If redness or drainage is noted, please call your surgeon. . After your denis dressing has been removed, follow wound care instructions below * DERMABOND Prineo- This is a mesh tape dressing that is covered with glue. It should remain in place until the incision is properly healed, usually 10-14 days. This dressing is designed to naturally slough off. You may trim the excess mesh tape as it peels off. Incision may be briefly wet in a shower. Dry immediately by blotting with a clean, dry towel. Do not bath or swim until instructed by your doctor. Do not scratch, rub, or pick at the dressing. Do not apply any topical ointments or lotions until dressing is completely removed and/or instructed by your doctor. There may be a small piece of suture material at one end of your incision. Do not pull or trim this. If it is bothersome or catching on clothing, you may c over it with a band-aid. FOLLOW UP VISIT: If appointment is not already scheduled: Please call [facility] [place] [facility] to make a follow-up appointment for 2 weeks after your surgery at . Addtl Risk Management Analyst Provider Instructions: Hospitalist notes - Restart Lisinopril 09/21 - Recommend outpatient follow up for chronically elevated WBC Stand-Alone Forms: My [employer], Pain - Opioid Pain Management, Smoking Cessation Medications and DC Order Prescriptions: New acetaminophen [Tylenol Extra Strength] 500 mg Tablet 1,000 mg PO Q8 14 Days Qty: 84 0RF Eliquis 2.5 mg Tablet 2.5 mg PO BID 30 Days Qty: 60 0RF cefadroxil 500 mg capsule 500 mg PO BID Qty: 28 1RF oxycodone 5 mg tablet 5 - 10 mg PO Q6H PRN (Reason: pain) Qty: 30 0RF Rx Instructions: ongoing therapy, supervising dr vicki kc. max 6 tabs in 24 hours Continued metoprolol succinate 25 mg Tablet Extended Release 24 Hr 25 mg PO QAM lisinopril 40 mg Tablet 40 mg PO QAM metformin 750 mg Tablet Extended Release 24 Hr 750 mg PO BID cholecalciferol (vitamin D3) [Vitamin D3] 25 mcg (1,000 unit) Tablet 25 mcg PO QAM glipizide 5 mg Tablet Extended Release 24hr 5 mg PO QAM Krames/Other Patient Handouts: DVT Post Op Prevention Admission Data Admit Date/Time: 09/19/23 09:16 Attending Provider: Harman Kc Admit Provider: Harman Kc Primary Care Provider: Rolando Sena Other Providers: Simona Kelly Other Interventions: Discharge Summary Assessment (RN) Last Done: 09/20/23 09:31
== END 2023-09-20 12:00 | disposition home health service (06) ==
LOC: ASU 05:05 → PACUINP 05:05 → 3E 12:13